=== PATIENT | male | born 1965 | race Caucasian/White ===

== ENCOUNTER 2024-10-24 20:11 | Inpatient (IN) | payer MEDICARE, SELFPAY ==
[2024-10-24 20:52] VITALS: BMI 35.9
[2024-10-24 20:54] VITALS: BP 156/96; PULSE 85; RESP 16; TEMP 36.3; O2SAT 97
[2024-10-24] MEDS: Melatonin 3 MG TABLET PO (22:00)
[2024-10-24] MEDS: Acetaminophen 325 MG TABLET 650 MG PO (22:00)
[2024-10-24] MEDS: traZODone HCL 100 MG TABLET PO (22:00)
[2024-10-24] MEDS: Famotidine 20 MG TABLET PO (22:00)
[2024-10-24] MEDS: Divalproex Sodium Sprinkles 125 MG CAP.DR.SPR 500 MG PO (22:06)
--- NOTE | 2024-10-25 03:06 | PC.ADMIT ---
PT IS A 58 YEAR OLD [place] SPEAKING MALE ADMITTED TO FROM [facility] ON A CONDITIONAL VOLUNTARY. PT WAS BROUGHT TO THE HOSPITAL FOR INCREASED DEPRESSION AND SUICIDAL IDEATION FOR THE PAST 3-4 WEEKS. PT RESIDES AT [facility]. HE DID SIGN A RELEASE FOR STAFF TO SPEAK TO [facility] REGARDING HIS CARE. PT WAS UNSURE OF HIS CURRENT PROVIDERS, REPORTING [facility] WOULD KNOW BETTER WHO I SEE . HE REPORTS THAT HE HAS HAD MANY PSYCHIATRIC ADMISSIONS OVER THE PAST 30 YEARS. PT REPORTS A HISTORY OF BIPOLAR DISORDER. HE APPEARS TO HAVE A TREMOR TO HIS LEFT ARM. PT REPORTS FREQUENT THOUGHTS OF SI WITH NO PLAN, CAN SEEK STAFF. HE REPORTS 10/10 DEPRESSION AND ANXIETY. DIFFICULTY STAYING ASLEEP AT TIMES DESPITE MEDS. SLIGHT DECREASE IN APPETITE. PT REPORTS RIGHT KNEE ARTHRITIS WHICH HE USES A CANE FOR. PT DECLINED A WALKER AT THIS TIME AND IS UTILIZING NO ASSISTIVE DEVICES. HE DENIES ANY FALLS WITHIN THE PAST YEAR. PTS VITAL SIGNS ARE NORMAL. SKIN CHECK UNREMARKABLE. NO KNOWN ALLERGIES. NEVER USED NICOTINE. NO ILLICIT SUBSTANCE USE. PT REPORTS NOT HAVING DRANK ALCOHOL IN APPROXIMATELY 3 YEARS.
[2024-10-25 08:00] VITALS: BP 190/89; PULSE 76; TEMP 36.6; O2SAT 100
[2024-10-25 09:01] VITALS: BP 190/89; PULSE 62
[2024-10-25] MEDS: Propranolol HCL 20 MG TABLET 60 MG PO (09:01)
[2024-10-25] MEDS: Tamsulosin HCL 0.4 MG CAPSULE PO (09:01)
[2024-10-25] MEDS: ARIPiprazole 15 MG TABLET PO (09:03)
[2024-10-25] MEDS: Atorvastatin Calcium 10 MG TABLET PO (09:03)
[2024-10-25] MEDS: lisinopriL 5 MG TABLET PO (09:03)
[2024-10-25] MEDS: Divalproex Sodium Sprinkles 125 MG CAP.DR.SPR 500 MG PO ×2 (09:03→20:30)
[2024-10-25] MEDS: Multivitamin TABLET 1 TAB PO (09:04)
[2024-10-25] MEDS: Famotidine 20 MG TABLET PO ×2 (09:04→20:30)
--- NOTE | 2024-10-25 09:56 | P.HPPS_ITS ---
HPI Date of Service: 10/25/24 Chief Complaint: Bipolar Disorder Sources of Information: patient interviewed, chart reviewed and crisis/core team assessment reviewed HPI Narrative: Patient is a 58-year-old male with history of bipolar disorder who self-presents for worsening depression and SI in the face and verses father's . Patient reports that he has had bipolar disorder for 30 years and has been and now the hospital many times; however he has been more stable lately and hospitalized once every 8 months. For the past 6 months he has been doing overall well, good enough, living at his correction which he says is not bad. As August approached, the anniversary of his father's , as usual he started to get depressed. Over the next month and a half his depression increased became more severe where he had little interest in things, low energy, poor concentration, increased appetite, increased guilty feelings and then over the past 3 weeks suicidal ideation. Patient reports chronic passive SI that is typically fleeting and easy to dismiss; however over the past week it has become more intense and patient developed a plan to overdose on Tylenol. He alerted his correction staff and said he needed to go to the hospital for safety. Patient takes his medications regularly. Denies any drug or alcohol use. Denies any AVH. Past Psychiatric History: Numerous psychiatric admissions over the years Most recent psych admission was 12/24/2023 History of around 20 suicide attempts; history of intentional overdose on Tylenol Patient currently on Abilify and Depakote History of being on lithium: Stopped about a year ago due to side effects Manic episode was 1st triggered in 1992 when patient was started on Wellbutrin Medical Evaluation Reviewed: Hospitalist Aiden Pending [facility] Medical History (Updated 10/25/24 @ 17:54 by Jose Castrejon MD) Bipolar I disorder Family History: Father side: Numerous suicide attempts Social History: Currently lives in correction called [facility] Substance History: None Trauma History: Deferred Diagnostics Vital Signs (24Hr): Vital Signs - 24 hr 10/24/24 20:54 10/25/24 09:01 Temperature 97.4 F Pulse Rate 85 62 Respiratory Rate 16 Blood Pressure 156/96 H 190/89 H Pulse Oximetry 97 Oxygen Delivery Method Room Air BMI result Body Mass Index 35.9 Labs 10/25/24 09:50 Meds/Allergies Meds Home Medications ?Medication ?Instructions ?Recorded ?Confirmed ?Type aripiprazole 15 mg tablet (Abilify) 15 mg PO DAILY 10/24/24 10/24/24 History atorvastatin 10 mg tablet (Lipitor) 10 mg PO DAILY 10/24/24 10/24/24 History diclofenac sodium 1 % topical gel 1 ea topical BID PRN Pain 10/24/24 10/24/24 History (Arthritis Pain (diclofenac)) divalproex 125 mg capsule,delayed 500 mg PO BID 10/24/24 10/24/24 History release sprinkle (Depakote Sprinkles) famotidine 20 mg tablet 20 mg PO BID 10/24/24 10/24/24 History lisinopril 5 mg tablet 5 mg PO DAILY 10/24/24 10/24/24 History magnesium hydroxide 800 mg/5 mL 800 mg PO DAILY PRN Constipation 10/24/24 10/24/24 History oral suspension melatonin 1 mg tablet 4 mg PO BEDTIME 10/24/24 10/24/24 History afylzzee-khg-iplew acid 0.4 1 tab PO DAILY 10/24/24 10/24/24 History mg-lycopene 300 mcg-lutein 250 mcg tablet (CertaVite Senior) ondansetron 4 mg disintegrating 4 mg PO Q8H PRN Nausea And Vomiting 10/24/24 10/24/24 History tablet propranolol 60 mg tablet 60 mg PO DAILY 10/24/24 10/24/24 History sennosides 8.6 mg tablet (senna) 17.2 mg PO BEDTIME PRN Constipation 10/24/24 10/24/24 History tamsulosin 0.4 mg capsule 0.4 mg PO DAILY 10/24/24 10/24/24 History trazodone 100 mg tablet 100 mg PO BEDTIME 10/24/24 10/24/24 History Allergies Allergies Allergy/AdvReac Type Severity Reaction Status Date / Time No Known Allergies Allergy Verified 10/24/24 20:52 Mental Status Exam Mental Status Exam Narrative: Pt is alert and oriented; behavior is cooperative, quiet, calm; patient is not in distress; dressed in hospital attire, scruffy; bilateral hand tremor, some pill rolling; some involuntary mouth movements; mood is described as depressed and affect congruent, downcast; eye contact appropriate; Speech is a little slow and a little soft; psychomotor retardation present; thought process is organized and goal directed; Thought content is on feeling hopeless, treatment; otherwise pertinent to relevant topics and without any delusional content, paranoid ideations or grandiosity; positive SI though no intent or plan; no HI. Denies AVH and there is no evidence of perceptual disturbance. Patients insight and judgment impaired Assessment & Plan Assessment & Plan (1) Bipolar I disorder: Status: Acute Code(s): F31.9 - Bipolar disorder, unspecified Plan Patient is a 58-year-old male with history of bipolar disorder who self-presents for worsening depression and SI in the face and verses father's . Patient reports that he has had bipolar disorder for 30 years and has been and now the hospital many times; however he has been more stable lately and hospitalized once every 8 months. For the past 6 months he has been doing overall well, good enough, living at his correction which he says is not bad. As August approached, the anniversary of his father's , as usual he started to get depressed. Over the next month and a half his depression increased became more severe where he had little interest in things, low energy, poor concentration, increased appetite, increased guilty feelings and then over the past 3 weeks suicidal ideation. Patient reports chronic passive SI that is typically fleeting and easy to dismiss; however over the past week it has become more intense and patient developed a plan to overdose on Tylenol. He alerted his correction staff and said he needed to go to the hospital for safety. Patient takes his medications regularly. Denies any drug or alcohol use. Denies any AVH. Formulation/clinical reasoning: Thirty year history of bipolar disorder. Currently severely depressed. Symptoms seem to be moderately well treated with Abilify and Depakote however patient chronically gets depressed every August. He wants medication management now to help relieve his current depression and prevent future depressive episodes. Discussed options. Patient already seems to have some medication side effects including possible parkinsonian and TD so would like to avoid adding another antipsychotic or increasing Abilify. Considered Wellbutrin however since a triggered his last manic episode, probably not worth the risk. For now will get Depakote level and see if there is room to increase this medication before adding another. Plan: CV Q 15 minutes Depakote level Continue Depakote 500 mg b.i.d. Continue Abilify 15 mg daily Continue other home medications Collateral Patient educated on: diagnosis and medication risk/benefits Informed Consent: understands Reason for continued inpatient stay Substantial Risk for: inability to function and rapid decompensation Statement Statement: I have reviewed the history and physical and performed a pertinent examination on my patient. No changes have occurred unless specified. If the History and Physical was not performed prior to admission, the Hospitalist's service will be consulted for completing the admission physical. Time Spent With Patient Time: Total time managing care of this patient today ____ minutes.
[2024-10-25 10:00] VITALS: BP 111/78; PULSE 79
[2024-10-25 10:22] LABS: MANUAL DIFF FLAG NO
[2024-10-25 10:36] LABS: Basophils Absolute Auto 0.1 X10*3/uL (0.0-0.2); Basophils Percent Auto 0.8 % (0-2); Eosinophils Absolute Auto 0.1 X10*3/uL (0.0-0.4); Eosinophils Percent Auto 1.7 % (0-4); Hematocrit 41.1 % (42.0-52.0); Hemoglobin 13.8 g/dl (14.0-18.0); Imm Gran Abs Auto 0.02 X10*3/uL (0.00-0.03); Imm Gran Pct Auto 0.3 % (0.0-0.4); Lymphocytes Absolute Auto 2.1 X10*3/uL (1.2-4.9); Lymphocytes Percent Auto 32.4 % (20-40); Mean Corpuscular HGB Conc 33.6 g/dl (31.0-36.0); Mean Corpuscular Hemoglobin 30.1 pg (27.0-33.0); Mean Corpuscular Volume 89.7 fL (80.0-98.0); Mean Platelet Volume 10.4 fL (9.4-12.4); Monocytes Absolute Auto 0.5 X10*3/uL (0.1-1.2); Monocytes Percent Auto 7.7 % (2-11); Neutrophils Absolute Auto 3.6 x10*3/uL (2.0-8.3); Neutrophils Percent Auto 57.1 % (45-73); Platelet Count 243 X10*3/uL (160-400); Red Blood Count 4.58 X10*6/uL (4.60-5.80); Red Cell Distribution Width 12.8 % (11.0-16.0); White Blood Count 6.4 X10*3/uL (4.8-10.8)
[2024-10-25 11:05] LABS: Estimated Average Glucose 97 mg/dL; Hemoglobin A1C 124.1005 umol/L
[2024-10-25 11:06] LABS: Cholesterol 189 mg/dL (<200); HDL Cholesterol 38 mg/dL (>40); LDL Cholesterol Calculated 104 mg/dL (<100); Triglycerides 236 mg/dL (<150)
[2024-10-25 11:21] LABS: Free T4 (Free Thyroxine) 1.08 ng/dL (0.71-1.85); Thyroid Stimulating Hormone 1.41 uIU/mL (0.32-4.0)
[2024-10-25 11:33] LABS: Folate 13.9 ng/mL (> or = 4.0); Vitamin B12 601 pg/mL (200-900)
--- NOTE | 2024-10-25 12:06 | HO.PM.IMCN ---
History of Present Illness Data of Consult Service Date: 10/25/24 Primary Care Provider: Unknown Physician HPI Reason for consult: Routine Medical H&P The patient is a 58-year-old male with a past medical history significant for hypertension, peptic ulcer disease, hypercholesterolemia, BPH who is admitted to . Medical consult has been requested for routine medical H&P as the patient is an outside transfer. Patient is seen and examined in his room. He denies any current medical complaints. He reports a baseline tremor which he has noted for the past 1 year or so. States that this has not been evaluated. Review of Systems Review of Systems: Negative except HPI/interval history. PMFSH Cognitive capacity: HTN HLD PUD Pertinent family history: CVA in father Social History Household Members: Other Housing: Assisted Living Facility Housing Other:: Estate Assist Do you presently have visiting nurse or other home services: No Patient Tobacco Use Status: Never used Tobacco Smoked in Last 30 Days: No Patient Interested in Nicotine Replacement: No Patient Given Instructions on How to Stop Smoking: No Second Hand Smoke Exposure: No Use of substances other than those prescribed or required for medical reasons: No Currently Displaying Signs/Symptoms of Drug Intoxication Withdrawal: No Have you been hit, kicked, punched, or otherwise hurt by someone within the past year? If so, by whom?: No Do you feel safe in your current relationship?: No Current Relationship Is there a partner from a previous relationship who is making you feel unsafe now?: No Are you made to feel afraid or neglected: No Advance Directives: No Advance Directives Information Provided: No Do you have thoughts of harming others: None Do you have a plan to hurt others: No Plan Recently lost weight without trying: No Eating poorly because of decreased appetite: No Nutrition Risks: No Nutritional Risk Poor oral hygiene: No Meds Allergies Allergy/AdvReac Type Severity Reaction Status Date / Time No Known Allergies Allergy Verified 10/24/24 20:52 Active Medications: Current Medications Acetaminophen (Acetaminophen 325 Mg Tablet) 650 mg PO Q6H PRN PRN Reason: Headache/Pain, Scale 1-10 Last Admin: 10/24/24 22:00 Dose: 650 mg Al Hydroxide/Mg Hydroxide (Magnesium Hydrox/Alum Hydrox 30 Ml Oral.Susp) 30 ml PO Q6H PRN PRN Reason: Heartburn/Nausea Aripiprazole (Aripiprazole 15 Mg Tablet) 15 mg PO DAILY [facility] Last Admin: 10/25/24 09:03 Dose: 15 mg Atorvastatin Calcium (Atorvastatin Calcium 10 Mg Tablet) 10 mg PO DAILY [facility] Last Admin: 10/25/24 09:03 Dose: 10 mg Divalproex Sodium (Divalproex Sodium Sprinkles 125 Mg ) 500 mg PO BID [facility] Last Admin: 10/25/24 09:03 Dose: 500 mg Famotidine (Famotidine 20 Mg Tablet) 20 mg PO BID [facility] Last Admin: 10/25/24 09:04 Dose: 20 mg Hydroxyzine HCl (Hydroxyzine Hcl 25 Mg Tablet) 25 mg PO Q6H PRN PRN Reason: mild anxiety Lisinopril (Lisinopril 5 Mg Tablet) 5 mg PO DAILY [facility]; Protocol Last Admin: 10/25/24 09:03 Dose: 5 mg Magnesium Hydroxide (Milk Of Magnesia 30 Ml Oral.Susp) 30 ml PO DAILY PRN PRN Reason: Constipation Melatonin (Melatonin 3 Mg Tablet) 3 mg PO BEDTIME [facility] Last Admin: 10/24/24 22:00 Dose: 3 mg Multivitamins/Vitamin C (Multivitamin Tablet) 1 tab PO DAILY [facility] Last Admin: 10/25/24 09:04 Dose: 1 tab Nicotine Polacrilex (Nicotine Polacrilex 2 Mg Gum) 4 mg BUCCAL Q2H PRN PRN Reason: Nicotine Cravings Ondansetron HCl (Ondansetron Odt 4 Mg Tab.Rapdis) 4 mg TRANSLINGU Q8H PRN PRN Reason: Nausea And Vomiting Propranolol HCl (Propranolol Hcl 20 Mg Tablet) 60 mg PO DAILY [facility]; Protocol Last Admin: 10/25/24 09:01 Dose: 60 mg Senna (Sennosides 8.6 Mg Tablet) 17.2 mg PO BEDTIME PRN PRN Reason: Constipation Tamsulosin HCl (Tamsulosin Hcl 0.4 Mg Capsule) 0.4 mg PO DAILY [facility] Last Admin: 10/25/24 09:01 Dose: 0.4 mg Trazodone HCl (Trazodone Hcl 50 Mg Tablet) 50 mg PO BEDTIME MRX1 PRN PRN Reason: Insomnia Trazodone HCl (Trazodone Hcl 100 Mg Tablet) 100 mg PO BEDTIME [facility] Last Admin: 10/24/24 22:00 Dose: 100 mg Home Medications ?Medication ?Instructions ?Recorded ?Confirmed ?Last Taken ?Type aripiprazole 15 mg tablet (Abilify) 15 mg PO DAILY 10/24/24 10/24/24 Unknown History atorvastatin 10 mg tablet (Lipitor) 10 mg PO DAILY 10/24/24 10/24/24 Unknown History diclofenac sodium 1 % topical gel 1 ea topical BID PRN Pain 10/24/24 10/24/24 Unknown History (Arthritis Pain (diclofenac)) divalproex 125 mg capsule,delayed 500 mg PO BID 10/24/24 10/24/24 Unknown History release sprinkle (Depakote Sprinkles) famotidine 20 mg tablet 20 mg PO BID 10/24/24 10/24/24 Unknown History lisinopril 5 mg tablet 5 mg PO DAILY 10/24/24 10/24/24 Unknown History magnesium hydroxide 800 mg/5 mL 800 mg PO DAILY PRN Constipation 10/24/24 10/24/24 Unknown History oral suspension melatonin 1 mg tablet 4 mg PO BEDTIME 10/24/24 10/24/24 Unknown History wbqlopdw-uvw-zydiz acid 0.4 1 tab PO DAILY 10/24/24 10/24/24 Unknown History mg-lycopene 300 mcg-lutein 250 mcg tablet (CertaVite Senior) ondansetron 4 mg disintegrating 4 mg PO Q8H PRN Nausea And Vomiting 10/24/24 10/24/24 Unknown History tablet propranolol 60 mg tablet 60 mg PO DAILY 10/24/24 10/24/24 Unknown History sennosides 8.6 mg tablet (senna) 17.2 mg PO BEDTIME PRN Constipation 10/24/24 10/24/24 Unknown History tamsulosin 0.4 mg capsule 0.4 mg PO DAILY 10/24/24 10/24/24 Unknown History trazodone 100 mg tablet 100 mg PO BEDTIME 10/24/24 10/24/24 Unknown History Physical Exam Vital Signs and Narrative: Vital Signs: Last Vital Signs Temp 97.8 F 10/25/24 08:00 Pulse 62 10/25/24 09:01 Resp 16 10/24/24 20:54 BP 190/89 H 10/25/24 09:01 Pulse Ox 100 10/25/24 08:00 O2 Del Method Room Air 10/25/24 08:00 BMI result Body Mass Index 35.9 Const: Other: General - no acute distress, appears comfortable Cardiovascular - regular rate and rhythm, S1-S2 Lungs - normal respiratory effort, clear to auscultation bilaterally, no wheezing Abdomen - soft, nontender, no rebound or guarding Extremities - no edema bilaterally Neuro - awake and alert, no focal deficits; cn2-12 in tact b/l; has resting tremor b/l UE Results Labs 10/25/24 09:50 Labs: Laboratory Results - last 24 hr 10/25/24 10/25/24 09:50 10:42 MCV 89.7 MCH 30.1 MCHC 33.6 RDW 12.8 Plt Count 243 MPV 10.4 Immature Gran % (Auto) 0.3 Neut % (Auto) 57.1 Lymph % (Auto) 32.4 [place] % (Auto) 7.7 Eos % (Auto) 1.7 Baso % (Auto) 0.8 Lymph # (Auto) 2.1 [place] # (Auto) 0.5 Eos # (Auto) 0.1 Baso # (Auto) 0.1 Abs Immat Gran (auto) 0.02 Absolute Neuts (auto) 3.6 Absolute Nucleated RBC 0.000 Nucleated RBC % (auto) 0.0 Estimat Average Glucose 97 Hemoglobin A1c % 5.0 Triglycerides 236 H Cholesterol 189 LDL Cholesterol, Calc 104 H HDL Cholesterol 38 L Vitamin B12 601 Folate 13.9 TSH 1.41 Free T4 1.08 Assessment and Plan (1) Routine medical exam: Status: Acute Plan 58 yo M with HLD, HTN, PUD who is admitted to . Medical consult requested for routine medical H&P. 1. HTN AM Bp elevated -- improved after AM meds to 111/78 denies symptoms of elevated HTN 2. HLD statin 3. PUD on H2 blockers -- continue the same 4. Resting tremor pt endorses on going for 1+ year can have outpt f/u with neurology Medicallly stable will sign off at this time, please re-consult PRN.
[2024-10-25 20:00] VITALS: BP 121/77; PULSE 91; TEMP 36.3; O2SAT 97
[2024-10-25] MEDS: Acetaminophen 325 MG TABLET 650 MG PO (20:30)
[2024-10-25] MEDS: Melatonin 3 MG TABLET PO (20:30)
[2024-10-25] MEDS: traZODone HCL 100 MG TABLET PO (20:30)
[2024-10-26 08:00] VITALS: BP 138/87; PULSE 77; RESP 16; TEMP 36.2; O2SAT 99
[2024-10-26 08:18] LABS: Valproate 43.1 mcg/mL (50.0-100.0)
[2024-10-26 10:04] VITALS: BP 138/87; PULSE 77
[2024-10-26] MEDS: Propranolol HCL 20 MG TABLET 60 MG PO (10:04)
[2024-10-26] MEDS: Divalproex Sodium Sprinkles 125 MG CAP.DR.SPR 500 MG PO (10:05)
[2024-10-26] MEDS: lisinopriL 5 MG TABLET PO (10:06)
[2024-10-26] MEDS: Tamsulosin HCL 0.4 MG CAPSULE PO (10:06)
[2024-10-26] MEDS: Famotidine 20 MG TABLET PO ×2 (10:06→21:21)
[2024-10-26] MEDS: Atorvastatin Calcium 10 MG TABLET PO (10:06)
[2024-10-26] MEDS: ARIPiprazole 15 MG TABLET PO (10:06)
[2024-10-26] MEDS: Multivitamin TABLET 1 TAB PO (10:06)
[2024-10-26] MEDS: Acetaminophen 325 MG TABLET 650 MG PO ×2 (10:21→21:23)
--- NOTE | 2024-10-26 10:58 | P.PNPSI_ITS ---
Subjective Subjective Date of Service: 10/26/24 Reason For Visit: Bipolar Disorder Interim History: met w/ pt; discussed with team little better but thinks it because he's here on the unit and unable to hurt himself, which is relieving. He still has SI but it's less intense and he can dismiss it, though not back to baseline. Reviewed depakote level which is subtherapeutic and pt agrees to increase dose, switch to Long acting and make it once a day. He's hoping not to add a new med if possible. discussed TD; he is interested in [facility] Mental Status Exam Mental Status Exam Narrative: Pt is alert and oriented; behavior is cooperative, quiet, calm; patient is not in distress; dressed in hospital attire, scruffy; bilateral hand tremor, some pill rolling; some involuntary mouth movements; mood is described as depressed...little better though affect still downcast; eye contact appropriate; Speech is a little slow and a little soft; psychomotor retardation present; thought process is organized and goal directed; Thought content is on feeling hopeless, treatment; otherwise pertinent to relevant topics and without any delusional content, paranoid ideations or grandiosity; positive SI though no intent or plan; no HI. Denies AVH and there is no evidence of perceptual disturbance. Patients insight and judgment impaired Diagnostics Vital Signs (24Hr): Vital Signs - 24 hr 10/25/24 20:00 10/26/24 08:00 10/26/24 10:04 Temperature 97.3 F 97.1 F Pulse Rate 91 77 77 Respiratory Rate 16 Blood Pressure 121/77 138/87 138/87 Pulse Oximetry 97 99 Oxygen Delivery Method Room Air Room Air BMI result Body Mass Index 35.9 Labs 10/25/24 09:50 Labs: Laboratory Results - last 48 hr 10/25/24 10/25/24 10/26/24 09:50 10:42 07:41 WBC 6.4 RBC 4.58 L Hgb 13.8 L Hct 41.1 L MCV 89.7 MCH 30.1 MCHC 33.6 RDW 12.8 Plt Count 243 MPV 10.4 Immature Gran % (Auto) 0.3 Neut % (Auto) 57.1 Lymph % (Auto) 32.4 [place] % (Auto) 7.7 Eos % (Auto) 1.7 Baso % (Auto) 0.8 Lymph # (Auto) 2.1 [place] # (Auto) 0.5 Eos # (Auto) 0.1 Baso # (Auto) 0.1 Abs Immat Gran (auto) 0.02 Absolute Neuts (auto) 3.6 Absolute Nucleated RBC 0.000 Nucleated RBC % (auto) 0.0 Estimat Average Glucose 97 Hemoglobin A1c % 5.0 Triglycerides 236 H Cholesterol 189 LDL Cholesterol, Calc 104 H HDL Cholesterol 38 L Vitamin B12 601 Folate 13.9 TSH 1.41 Free T4 1.08 Valproic Acid 43.1 L Medications Medications Current Medications Acetaminophen (Acetaminophen 325 Mg Tablet) 650 mg PO Q6H PRN PRN Reason: Headache/Pain, Scale 1-10 Last Admin: 10/26/24 10:21 Dose: 650 mg Al Hydroxide/Mg Hydroxide (Magnesium Hydrox/Alum Hydrox 30 Ml Oral.Susp) 30 ml PO Q6H PRN PRN Reason: Heartburn/Nausea Aripiprazole (Aripiprazole 15 Mg Tablet) 15 mg PO DAILY [facility] Last Admin: 10/26/24 10:06 Dose: 15 mg Atorvastatin Calcium (Atorvastatin Calcium 10 Mg Tablet) 10 mg PO DAILY [facility] Last Admin: 10/26/24 10:06 Dose: 10 mg Divalproex Sodium (Divalproex Sodium Sprinkles 125 Mg ) 500 mg PO BID [facility] Last Admin: 10/26/24 10:05 Dose: 500 mg Famotidine (Famotidine 20 Mg Tablet) 20 mg PO BID [facility] Last Admin: 10/26/24 10:06 Dose: 20 mg Hydroxyzine HCl (Hydroxyzine Hcl 25 Mg Tablet) 25 mg PO Q6H PRN PRN Reason: mild anxiety Lisinopril (Lisinopril 5 Mg Tablet) 5 mg PO DAILY [facility]; Protocol Last Admin: 10/26/24 10:06 Dose: 5 mg Magnesium Hydroxide (Milk Of Magnesia 30 Ml Oral.Susp) 30 ml PO DAILY PRN PRN Reason: Constipation Melatonin (Melatonin 3 Mg Tablet) 3 mg PO BEDTIME [facility] Last Admin: 10/25/24 20:30 Dose: 3 mg Multivitamins/Vitamin C (Multivitamin Tablet) 1 tab PO DAILY [facility] Last Admin: 10/26/24 10:06 Dose: 1 tab Nicotine Polacrilex (Nicotine Polacrilex 2 Mg Gum) 4 mg BUCCAL Q2H PRN PRN Reason: Nicotine Cravings Ondansetron HCl (Ondansetron Odt 4 Mg Tab.Rapdis) 4 mg TRANSLINGU Q8H PRN PRN Reason: Nausea And Vomiting Propranolol HCl (Propranolol Hcl 20 Mg Tablet) 60 mg PO DAILY [facility]; Protocol Last Admin: 10/26/24 10:04 Dose: 60 mg Senna (Sennosides 8.6 Mg Tablet) 17.2 mg PO BEDTIME PRN PRN Reason: Constipation Tamsulosin HCl (Tamsulosin Hcl 0.4 Mg Capsule) 0.4 mg PO DAILY [facility] Last Admin: 10/26/24 10:06 Dose: 0.4 mg Trazodone HCl (Trazodone Hcl 50 Mg Tablet) 50 mg PO BEDTIME MRX1 PRN PRN Reason: Insomnia Trazodone HCl (Trazodone Hcl 100 Mg Tablet) 100 mg PO BEDTIME [facility] Last Admin: 10/25/24 20:30 Dose: 100 mg Allergies Allergies Allergy/AdvReac Type Severity Reaction Status Date / Time No Known Allergies Allergy Verified 10/24/24 20:52 Assessment & Plan Assessment & Plan (1) Bipolar I disorder: Status: Acute Code(s): F31.9 - Bipolar disorder, unspecified Plan Patient is a 58-year-old male with history of bipolar disorder who self-presents for worsening depression and SI in the face and verses father's . Patient reports that he has had bipolar disorder for 30 years and has been and now the hospital many times; however he has been more stable lately and hospitalized once every 8 months. For the past 6 months he has been doing overall well, good enough, living at his fpc which he says is not bad. As August approached, the anniversary of his father's , as usual he started to get depressed. Over the next month and a half his depression increased became more severe where he had little interest in things, low energy, poor concentration, increased appetite, increased guilty feelings and then over the past 3 weeks suicidal ideation. Patient reports chronic passive SI that is typically fleeting and easy to dismiss; however over the past week it has become more intense and patient developed a plan to overdose on Tylenol. He alerted his [facility] staff and said he needed to go to the hospital for safety. Patient takes his medications regularly. Denies any drug or alcohol use. Denies any AVH. Formulation/clinical reasoning: Thirty year history of bipolar disorder. Currently severely depressed. Symptoms seem to be moderately well treated with Abilify and Depakote however patient chronically gets depressed every August. He wants medication management now to help relieve his current depression and prevent future depressive episodes. Discussed options. Patient already seems to have some medication side effects including possible parkinsonian and TD so would like to avoid adding another antipsychotic or increasing Abilify. Considered Wellbutrin however since a triggered his last manic episode, probably not worth the risk. For now will get Depakote level and see if there is room to increase this medication before adding another. Hospital course: 10/26 little better but thinks it because he's here on the unit and unable to hurt himself, which is relieving; also feels therapeutic environment helpful. He still has SI but it's less intense and he can dismiss it, though not back to baseline. Reviewed depakote level which is subtherapeutic and pt agrees to increase dose, switch to Long acting and make it once a day. He's hoping not to add a new med if possible. discussed TD; he is interested in [facility] Plan: CV Q 15 minutes Depakote level subtherapeutic START Depakote ER 1500mg qhs (DC Depakote sprinkles 500 mg b.i.d. ) Continue Abilify 15 mg daily Continue other home medications Collateral Patient educated on: diagnosis, medication risk/benefits and therapeutic strategies Informed Consent: understands Reason for continued inpatient stay Substantial Risk for: rapid decompensation Time Spent With Patient Time: Total time managing care of this patient today ____ minutes.
[2024-10-26 19:45] VITALS: BP 137/81; PULSE 75; RESP 16; TEMP 36.4; O2SAT 98
[2024-10-26] MEDS: traZODone HCL 100 MG TABLET PO (21:21)
[2024-10-26] MEDS: Divalproex Sodium ER 500 MG TAB.ER.24H 1500 MG PO (21:21)
[2024-10-26] MEDS: Melatonin 3 MG TABLET PO (21:21)
[2024-10-27 08:00] VITALS: BP 154/91; PULSE 64; TEMP 36.4; O2SAT 99
[2024-10-27] MEDS: Atorvastatin Calcium 10 MG TABLET PO (09:13)
[2024-10-27] MEDS: Multivitamin TABLET 1 TAB PO (09:13)
[2024-10-27] MEDS: Propranolol HCL 20 MG TABLET 60 MG PO (09:13)
[2024-10-27] MEDS: Tamsulosin HCL 0.4 MG CAPSULE PO (09:13)
[2024-10-27] MEDS: Famotidine 20 MG TABLET PO ×2 (09:13→20:55)
[2024-10-27] MEDS: ARIPiprazole 15 MG TABLET PO (09:13)
[2024-10-27] MEDS: lisinopriL 5 MG TABLET PO (09:13)
--- NOTE | 2024-10-27 12:53 | HO.PSYCHPN ---
Subjective Subjective Date of Service: 10/27/24 Reason For Visit: Bipolar Disorder Interim History: met with patient; discussed with team pt says feeling better, but still thinks mostly due to feeling safe on the unit. Says not back to baseline but at a 5/10 (10 being regular self). 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 manic; will wait until increased dose of Depakote reaches steady state to decide Mental Status Exam Mental Status Exam Narrative: Pt is alert and oriented; behavior is cooperative, quiet, calm; patient is not in distress; dressed in hospital attire, scruffy; bilateral hand tremor, some pill rolling; some involuntary mouth movements; mood is described as little better though affect still downcast; eye contact appropriate; Speech is a little slow and a little soft; less psychomotor retardation present; thought process is organized and goal directed; Thought content is on feeling overcoming hopeless thoughts, treatment; otherwise pertinent to relevant topics and without any delusional content, paranoid ideations or grandiosity; intermittent positive SI, though no intent or plan; no HI. Denies AVH and there is no evidence of perceptual disturbance. Patients insight and judgment impaired but improving. Diagnostics Vital Signs (24Hr): Vital Signs - 24 hr 10/26/24 19:45 10/27/24 08:00 Temperature 97.5 F 97.5 F Pulse Rate 75 64 Respiratory Rate 16 Blood Pressure 137/81 154/91 H Pulse Oximetry 98 99 Oxygen Delivery Method Room Air Room Air BMI result Body Mass Index 35.9 Labs 10/25/24 09:50 Labs: Laboratory Results - last 48 hr 10/26/24 07:41 Valproic Acid 43.1 L Medications Medications Current Medications Acetaminophen (Acetaminophen 325 Mg Tablet) 650 mg PO Q6H PRN PRN Reason: Headache/Pain, Scale 1-10 Last Admin: 10/26/24 21:23 Dose: 650 mg Al Hydroxide/Mg Hydroxide (Magnesium Hydrox/Alum Hydrox 30 Ml Oral.Susp) 30 ml PO Q6H PRN PRN Reason: Heartburn/Nausea Aripiprazole (Aripiprazole 15 Mg Tablet) 15 mg PO DAILY [facility] Last Admin: 10/27/24 09:13 Dose: 15 mg Atorvastatin Calcium (Atorvastatin Calcium 10 Mg Tablet) 10 mg PO DAILY [facility] Last Admin: 10/27/24 09:13 Dose: 10 mg Divalproex Sodium (Divalproex Sodium Er 500 Mg Tab.Er.24h) 1,500 mg PO BEDTIME [facility] Last Admin: 10/26/24 21:21 Dose: 1,500 mg Famotidine (Famotidine 20 Mg Tablet) 20 mg PO BID [facility] Last Admin: 10/27/24 09:13 Dose: 20 mg Hydroxyzine HCl (Hydroxyzine Hcl 25 Mg Tablet) 25 mg PO Q6H PRN PRN Reason: mild anxiety Lisinopril (Lisinopril 5 Mg Tablet) 5 mg PO DAILY [facility]; Protocol Last Admin: 10/27/24 09:13 Dose: 5 mg Magnesium Hydroxide (Milk Of Magnesia 30 Ml Oral.Susp) 30 ml PO DAILY PRN PRN Reason: Constipation Melatonin (Melatonin 3 Mg Tablet) 3 mg PO BEDTIME [facility] Last Admin: 10/26/24 21:21 Dose: 3 mg Multivitamins/Vitamin C (Multivitamin Tablet) 1 tab PO DAILY [facility] Last Admin: 10/27/24 09:13 Dose: 1 tab Nicotine Polacrilex (Nicotine Polacrilex 2 Mg Gum) 4 mg BUCCAL Q2H PRN PRN Reason: Nicotine Cravings Ondansetron HCl (Ondansetron Odt 4 Mg Tab.Rapdis) 4 mg TRANSLINGU Q8H PRN PRN Reason: Nausea And Vomiting Propranolol HCl (Propranolol Hcl 20 Mg Tablet) 60 mg PO DAILY [facility]; Protocol Last Admin: 10/27/24 09:13 Dose: 60 mg Senna (Sennosides 8.6 Mg Tablet) 17.2 mg PO BEDTIME PRN PRN Reason: Constipation Tamsulosin HCl (Tamsulosin Hcl 0.4 Mg Capsule) 0.4 mg PO DAILY [facility] Last Admin: 10/27/24 09:13 Dose: 0.4 mg Trazodone HCl (Trazodone Hcl 50 Mg Tablet) 50 mg PO BEDTIME MRX1 PRN PRN Reason: Insomnia Trazodone HCl (Trazodone Hcl 100 Mg Tablet) 100 mg PO BEDTIME [facility] Last Admin: 10/26/24 21:21 Dose: 100 mg Allergies Allergies Allergy/AdvReac Type Severity Reaction Status Date / Time No Known Allergies Allergy Verified 10/24/24 20:52 Assessment & Plan Assessment & Plan (1) Bipolar I disorder: Status: Acute Code(s): F31.9 - Bipolar disorder, unspecified Plan Patient is a 58-year-old male with history of bipolar disorder who self-presents for worsening depression and SI in the face and verses father's . Patient reports that he has had bipolar disorder for 30 years and has been and now the hospital many times; however he has been more stable lately and hospitalized once every 8 months. For the past 6 months he has been doing overall well, good enough, living at his snf which he says is not bad. As August approached, the anniversary of his father's , as usual he started to get depressed. Over the next month and a half his depression increased became more severe where he had little interest in things, low energy, poor concentration, increased appetite, increased guilty feelings and then over the past 3 weeks suicidal ideation. Patient reports chronic passive SI that is typically fleeting and easy to dismiss; however over the past week it has become more intense and patient developed a plan to overdose on Tylenol. He alerted his snf staff and said he needed to go to the hospital for safety. Patient takes his medications regularly. Denies any drug or alcohol use. Denies any AVH. Formulation/clinical reasoning: Thirty year history of bipolar disorder. Currently severely depressed. Symptoms seem to be moderately well treated with Abilify and Depakote however patient chronically gets depressed every August. He wants medication management now to help relieve his current depression and prevent future depressive episodes. Discussed options. Patient already seems to have some medication side effects including possible parkinsonian and TD so would like to avoid adding another antipsychotic or increasing Abilify. Considered Wellbutrin however since a triggered his last manic episode, probably not worth the risk. For now will get Depakote level and see if there is room to increase this medication before adding another. Hospital course: 10/26 little better but thinks it because he's here on the unit and unable to hurt himself, which is relieving; also feels therapeutic environment helpful. He still has SI but it's less intense and he can dismiss it, though not back to baseline. Reviewed depakote level which is subtherapeutic and pt agrees to increase dose, switch to Long acting and make it once a day. He's hoping not to add a new med if possible. 10/27 pt says feeling better, but still thinks mostly due to feeling safe on the unit. Says not back to baseline but at a 5/10 (10 being regular self). 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 ); Depakote level was subtherapeutic Continue Abilify 15 mg daily Continue other home medications Collateral Patient educated on: diagnosis, medication risk/benefits and therapeutic strategies Informed Consent: understands Reason for continued inpatient stay Substantial Risk for: inability to function Time Spent With Patient Time: Total time managing care of this patient today ____ minutes.
[2024-10-27] MEDS: Acetaminophen 325 MG TABLET 650 MG PO (16:01)
[2024-10-27 19:39] VITALS: BP 143/89; PULSE 78; RESP 16; TEMP 36.4; O2SAT 98
[2024-10-27] MEDS: traZODone HCL 100 MG TABLET PO (20:55)
[2024-10-27] MEDS: Melatonin 3 MG TABLET PO (20:55)
[2024-10-27] MEDS: Divalproex Sodium ER 500 MG TAB.ER.24H 1500 MG PO (20:55)
[2024-10-28] MEDS: Acetaminophen 325 MG TABLET 650 MG PO ×2 (02:18→19:16)
[2024-10-28 08:00] VITALS: BP 134/76; PULSE 83; RESP 16; TEMP 36.4; O2SAT 98
[2024-10-28] MEDS: Propranolol HCL 20 MG TABLET 60 MG PO (08:18)
[2024-10-28] MEDS: Tamsulosin HCL 0.4 MG CAPSULE PO (08:18)
[2024-10-28] MEDS: lisinopriL 5 MG TABLET PO (08:18)
[2024-10-28] MEDS: Famotidine 20 MG TABLET PO ×2 (08:19→21:06)
[2024-10-28] MEDS: ARIPiprazole 15 MG TABLET PO (08:19)
[2024-10-28] MEDS: Atorvastatin Calcium 10 MG TABLET PO (08:19)
[2024-10-28] MEDS: Multivitamin TABLET 1 TAB PO (08:19)
--- NOTE | 2024-10-28 09:59 | HO.PSYCHPN ---
Subjective Subjective Date of Service: 10/28/24 Reason For Visit: Bipolar Disorder Interim History: Met with patient; discussed with team Patient reports depression seems to be returning and he thinks the brief reprieve was just being in a new environment. Also patient had very poor sleep last night, waking up at 02:00 and has been up since. Discussed options and agreed to wait to see what Depakote level as which is being drawn tomorrow. Mental Status Exam Mental Status Exam Narrative: Pt is alert and oriented; behavior is cooperative, quiet, isolative calm; patient is not in distress; dressed in hospital attire, scruffy; bilateral hand tremor, some pill rolling; some involuntary mouth movements; mood is described as more depressed and affect still downcast; eye contact appropriate; Speech is a little slow and a little soft; still with psychomotor retardation present; thought process is organized and goal directed; Thought content is on feeling overcoming hopeless thoughts, treatment; otherwise pertinent to relevant topics and without any delusional content, paranoid ideations or grandiosity; intermittent positive SI, though no intent or plan; no HI. Denies AVH and there is no evidence of perceptual disturbance. Patients insight and judgment impaired Diagnostics Vital Signs (24Hr): Vital Signs - 24 hr 10/27/24 19:39 10/28/24 08:00 Temperature 97.5 F 97.5 F Pulse Rate 78 83 Respiratory Rate 16 16 Blood Pressure 143/89 H 134/76 Pulse Oximetry 98 98 Oxygen Delivery Method Room Air Room Air BMI result Body Mass Index 35.9 Labs 10/25/24 09:50 Medications Medications Current Medications Acetaminophen (Acetaminophen 325 Mg Tablet) 650 mg PO Q6H PRN PRN Reason: Headache/Pain, Scale 1-10 Last Admin: 10/28/24 02:18 Dose: 650 mg Al Hydroxide/Mg Hydroxide (Magnesium Hydrox/Alum Hydrox 30 Ml Oral.Susp) 30 ml PO Q6H PRN PRN Reason: Heartburn/Nausea Aripiprazole (Aripiprazole 15 Mg Tablet) 15 mg PO DAILY [facility] Last Admin: 10/28/24 08:19 Dose: 15 mg Atorvastatin Calcium (Atorvastatin Calcium 10 Mg Tablet) 10 mg PO DAILY [facility] Last Admin: 10/28/24 08:19 Dose: 10 mg Divalproex Sodium (Divalproex Sodium Er 500 Mg Tab.Er.24h) 1,500 mg PO BEDTIME [facility] Last Admin: 10/27/24 20:55 Dose: 1,500 mg Famotidine (Famotidine 20 Mg Tablet) 20 mg PO BID [facility] Last Admin: 10/28/24 08:19 Dose: 20 mg Hydroxyzine HCl (Hydroxyzine Hcl 25 Mg Tablet) 25 mg PO Q6H PRN PRN Reason: mild anxiety Lisinopril (Lisinopril 5 Mg Tablet) 5 mg PO DAILY [facility]; Protocol Last Admin: 10/28/24 08:18 Dose: 5 mg Magnesium Hydroxide (Milk Of Magnesia 30 Ml Oral.Susp) 30 ml PO DAILY PRN PRN Reason: Constipation Melatonin (Melatonin 3 Mg Tablet) 3 mg PO BEDTIME [facility] Last Admin: 10/27/24 20:55 Dose: 3 mg Multivitamins/Vitamin C (Multivitamin Tablet) 1 tab PO DAILY [facility] Last Admin: 10/28/24 08:19 Dose: 1 tab Nicotine Polacrilex (Nicotine Polacrilex 2 Mg Gum) 4 mg BUCCAL Q2H PRN PRN Reason: Nicotine Cravings Ondansetron HCl (Ondansetron Odt 4 Mg Tab.Rapdis) 4 mg TRANSLINGU Q8H PRN PRN Reason: Nausea And Vomiting Propranolol HCl (Propranolol Hcl 20 Mg Tablet) 60 mg PO DAILY [facility]; Protocol Last Admin: 10/28/24 08:18 Dose: 60 mg Senna (Sennosides 8.6 Mg Tablet) 17.2 mg PO BEDTIME PRN PRN Reason: Constipation Tamsulosin HCl (Tamsulosin Hcl 0.4 Mg Capsule) 0.4 mg PO DAILY [facility] Last Admin: 10/28/24 08:18 Dose: 0.4 mg Trazodone HCl (Trazodone Hcl 50 Mg Tablet) 50 mg PO BEDTIME MRX1 PRN PRN Reason: Insomnia Trazodone HCl (Trazodone Hcl 100 Mg Tablet) 100 mg PO BEDTIME [facility] Last Admin: 10/27/24 20:55 Dose: 100 mg Allergies Allergies Allergy/AdvReac Type Severity Reaction Status Date / Time No Known Allergies Allergy Verified 10/24/24 20:52 Assessment & Plan Assessment & Plan (1) Bipolar I disorder: Status: Acute Code(s): F31.9 - Bipolar disorder, unspecified Plan Patient is a 58-year-old male with history of bipolar disorder who self-presents for worsening depression and SI in the face and verses father's . Patient reports that he has had bipolar disorder for 30 years and has been and now the hospital many times; however he has been more stable lately and hospitalized once every 8 months. For the past 6 months he has been doing overall well, good enough, living at his [facility] which he says is not bad. As August approached, the anniversary of his father's , as usual he started to get depressed. Over the next month and a half his depression increased became more severe where he had little interest in things, low energy, poor concentration, increased appetite, increased guilty feelings and then over the past 3 weeks suicidal ideation. Patient reports chronic passive SI that is typically fleeting and easy to dismiss; however over the past week it has become more intense and patient developed a plan to overdose on Tylenol. He alerted his [facility] staff and said he needed to go to the hospital for safety. Patient takes his medications regularly. Denies any drug or alcohol use. Denies any AVH. Formulation/clinical reasoning: Thirty year history of bipolar disorder. Currently severely depressed. Symptoms seem to be moderately well treated with Abilify and Depakote however patient chronically gets depressed every August. He wants medication management now to help relieve his current depression and prevent future depressive episodes. Discussed options. Patient already seems to have some medication side effects including possible parkinsonian and TD so would like to avoid adding another antipsychotic or increasing Abilify. Considered Wellbutrin however since a triggered his last manic episode, probably not worth the risk. For now will get Depakote level and see if there is room to increase this medication before adding another. Hospital course: 10/26 little better but thinks it because he's here on the unit and unable to hurt himself, which is relieving; also feels therapeutic environment helpful. He still has SI but it's less intense and he can dismiss it, though not back to baseline. Reviewed depakote level which is subtherapeutic and pt agrees to increase dose, switch to Long acting and make it once a day. He's hoping not to add a new med if possible. 10/27 pt says feeling better, but still thinks mostly due to feeling safe on the unit. Says not back to baseline but at a 5/10 (10 being regular self). 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 Also patient had very poor sleep last night, waking up at 02:00 and has been up since. Discussed options and agreed to wait to see what Depakote level as which is being drawn tomorrow. Discussed behavioral activation; patient did go to group yesterday. Says he will continue to push himself to be interactive discussed TD; he is interested in in[facility] Plan: CV Q 15 minutes Continue Depakote ER 1500mg qhs (DC Depakote sprinkles 500 mg b.i.d. ); previous Depakote level was subtherapeutic -labs ordered Continue Abilify 15 mg daily Continue other home medications Collateral Patient educated on: diagnosis, medication risk/benefits and therapeutic strategies Informed Consent: understands Reason for continued inpatient stay Substantial Risk for: inability to function Time Spent With Patient Time: Total time managing care of this patient today ____ minutes.
[2024-10-28 19:50] VITALS: BP 162/97; PULSE 88; RESP 15; TEMP 36.4; O2SAT 98
[2024-10-28] MEDS: cloNIDine HCL 0.1 MG TABLET PO (21:06)
[2024-10-28] MEDS: Divalproex Sodium ER 500 MG TAB.ER.24H 1500 MG PO (21:06)
[2024-10-28] MEDS: Melatonin 3 MG TABLET PO (21:06)
[2024-10-28] MEDS: traZODone HCL 100 MG TABLET PO (21:06)
[2024-10-29 08:00] VITALS: BP 166/95; PULSE 59; TEMP 35.9; O2SAT 99
[2024-10-29] MEDS: Atorvastatin Calcium 10 MG TABLET PO (08:53)
[2024-10-29] MEDS: Tamsulosin HCL 0.4 MG CAPSULE PO (08:53)
[2024-10-29] MEDS: lisinopriL 5 MG TABLET PO (08:53)
[2024-10-29] MEDS: Multivitamin TABLET 1 TAB PO (08:54)
[2024-10-29] MEDS: Propranolol HCL 20 MG TABLET 60 MG PO (08:54)
[2024-10-29] MEDS: Famotidine 20 MG TABLET PO ×2 (08:54→20:55)
[2024-10-29] MEDS: ARIPiprazole 15 MG TABLET PO (08:54)
[2024-10-29 09:21] LABS: Valproate 55.1 mcg/mL (50.0-100.0)
[2024-10-29 09:27] LABS: Alanine Aminotransferase 24 U/L (0-40); Alkaline Phosphatase 81 U/L (39-117); Ammonia 38 umol/L (13-55); Bilirubin Direct 0.1 mg/dL (0.0-0.5); Bilirubin Total 0.3 mg/dL (0.0-1.0); Total Protein 7.6 g/dL (6.5-8.0)
[2024-10-29 09:47] LABS: Aspartate Amino Transferase 19 U/L (5-37)
--- NOTE | 2024-10-29 12:02 | HO.PSYCHPN ---
Subjective Subjective Date of Service: 10/29/24 Reason For Visit: Bipolar Disorder Interim History: Met with patient; discussed with team Patient says his mood is starting to feel little better today and of note his affect is somewhat brighter. Discussed medication regimen and history. Patient said that he was started on Abilify about a year ago for help with depression; he says his bilateral hand tremor and TD both started after he was initiated on Abilify and was never present prior. Discussed options for medication and as Depakote level is quite low, he agrees to increasing Depakote dose now; will also lower Abilify Mental Status Exam Mental Status Exam Narrative: Pt is alert and oriented; behavior is cooperative, more social, calm; patient is not in distress; dressed in casual attire, scruffy; bilateral hand tremor, some pill rolling; some involuntary mouth movements; mood is described as little better and affect a little brighter; eye contact appropriate; Speech is still a little soft and slow; still with psychomotor retardation but less so; thought process is organized and goal directed; Thought content is on treatment; otherwise pertinent to relevant topics and without any delusional content, paranoid ideations or grandiosity; intermittent positive SI, though no intent or plan; no HI. Denies AVH and there is no evidence of perceptual disturbance. Patients insight and judgment impaired but maybe improving Diagnostics Vital Signs (24Hr): Vital Signs - 24 hr 10/28/24 19:50 10/29/24 08:00 Temperature 97.5 F 96.6 F L Pulse Rate 88 59 Respiratory Rate 15 Blood Pressure 162/97 H 166/95 H Pulse Oximetry 98 99 Oxygen Delivery Method Room Air BMI result Body Mass Index 35.9 Labs 10/25/24 09:50 Labs: Laboratory Results - last 48 hr 10/29/24 08:53 Total Bilirubin 0.3 Direct Bilirubin 0.1 AST 19 ALT 24 Alkaline Phosphatase 81 Ammonia 38 Total Protein 7.6 Albumin 4.0 Valproic Acid 55.1 Medications Medications Current Medications Acetaminophen (Acetaminophen 325 Mg Tablet) 650 mg PO Q6H PRN PRN Reason: Headache/Pain, Scale 1-10 Last Admin: 10/28/24 19:16 Dose: 650 mg Al Hydroxide/Mg Hydroxide (Magnesium Hydrox/Alum Hydrox 30 Ml Oral.Susp) 30 ml PO Q6H PRN PRN Reason: Heartburn/Nausea Aripiprazole (Aripiprazole 15 Mg Tablet) 15 mg PO DAILY [facility] Last Admin: 10/29/24 08:54 Dose: 15 mg Atorvastatin Calcium (Atorvastatin Calcium 10 Mg Tablet) 10 mg PO DAILY [facility] Last Admin: 10/29/24 08:53 Dose: 10 mg Clonidine HCl (Clonidine Hcl 0.1 Mg Tablet) 0.1 mg PO BEDTIME [facility]; Protocol Last Admin: 10/28/24 21:06 Dose: 0.1 mg Divalproex Sodium (Divalproex Sodium Er 500 Mg Tab.Er.24h) 1,500 mg PO BEDTIME [facility] Last Admin: 10/28/24 21:06 Dose: 1,500 mg Famotidine (Famotidine 20 Mg Tablet) 20 mg PO BID [facility] Last Admin: 10/29/24 08:54 Dose: 20 mg Hydroxyzine HCl (Hydroxyzine Hcl 25 Mg Tablet) 25 mg PO Q6H PRN PRN Reason: mild anxiety Lisinopril (Lisinopril 5 Mg Tablet) 5 mg PO DAILY [facility]; Protocol Last Admin: 10/29/24 08:53 Dose: 5 mg Magnesium Hydroxide (Milk Of Magnesia 30 Ml Oral.Susp) 30 ml PO DAILY PRN PRN Reason: Constipation Melatonin (Melatonin 3 Mg Tablet) 3 mg PO BEDTIME [facility] Last Admin: 10/28/24 21:06 Dose: 3 mg Multivitamins/Vitamin C (Multivitamin Tablet) 1 tab PO DAILY [facility] Last Admin: 10/29/24 08:54 Dose: 1 tab Nicotine Polacrilex (Nicotine Polacrilex 2 Mg Gum) 4 mg BUCCAL Q2H PRN PRN Reason: Nicotine Cravings Ondansetron HCl (Ondansetron Odt 4 Mg Tab.Rapdis) 4 mg TRANSLINGU Q8H PRN PRN Reason: Nausea And Vomiting Propranolol HCl (Propranolol Hcl 20 Mg Tablet) 60 mg PO DAILY [facility]; Protocol Last Admin: 10/29/24 08:54 Dose: 60 mg Senna (Sennosides 8.6 Mg Tablet) 17.2 mg PO BEDTIME PRN PRN Reason: Constipation Tamsulosin HCl (Tamsulosin Hcl 0.4 Mg Capsule) 0.4 mg PO DAILY [facility] Last Admin: 10/29/24 08:53 Dose: 0.4 mg Trazodone HCl (Trazodone Hcl 50 Mg Tablet) 50 mg PO BEDTIME [facility]X1 PRN PRN Reason: Insomnia Trazodone HCl (Trazodone Hcl 100 Mg Tablet) 100 mg PO BEDTIME [facility] Last Admin: 10/28/24 21:06 Dose: 100 mg Allergies Allergies Allergy/AdvReac Type Severity Reaction Status Date / Time No Known Allergies Allergy Verified 10/24/24 20:52 Assessment & Plan Assessment & Plan (1) Bipolar I disorder: Status: Acute Code(s): F31.9 - Bipolar disorder, unspecified Plan Patient is a 58-year-old male with history of bipolar disorder who self-presents for worsening depression and SI in the face and verses father's . Patient reports that he has had bipolar disorder for 30 years and has been and now the hospital many times; however he has been more stable lately and hospitalized once every 8 months. For the past 6 months he has been doing overall well, good enough, living at his intermediate which he says is not bad. As August approached, the anniversary of his father's , as usual he started to get depressed. Over the next month and a half his depression increased became more severe where he had little interest in things, low energy, poor concentration, increased appetite, increased guilty feelings and then over the past 3 weeks suicidal ideation. Patient reports chronic passive SI that is typically fleeting and easy to dismiss; however over the past week it has become more intense and patient developed a plan to overdose on Tylenol. He alerted his intermediate staff and said he needed to go to the hospital for safety. Patient takes his medications regularly. Denies any drug or alcohol use. Denies any AVH. Formulation/clinical reasoning: Thirty year history of bipolar disorder. Currently severely depressed. Symptoms seem to be moderately well treated with Abilify and Depakote however patient chronically gets depressed every August. He wants medication management now to help relieve his current depression and prevent future depressive episodes. Discussed options. Patient already seems to have some medication side effects including possible parkinsonian and TD so would like to avoid adding another antipsychotic or increasing Abilify. Considered Wellbutrin however since a triggered his last manic episode, probably not worth the risk. For now will get Depakote level and see if there is room to increase this medication before adding another. Hospital course: 10/26 little better but thinks it because he's here on the unit and unable to hurt himself, which is relieving; also feels therapeutic environment helpful. He still has SI but it's less intense and he can dismiss it, though not back to baseline. Reviewed depakote level which is subtherapeutic and pt agrees to increase dose, switch to Long acting and make it once a day. He's hoping not to add a new med if possible. 10/27 pt says feeling better, but still thinks mostly due to feeling safe on the unit. Says not back to baseline but at a 5/10 (10 being regular self). He asks if he can retry Wellbutrin; service writer advisor discussed risks since made him manic; will wait until increased dose of Depakote reaches steady state to decide 10/28 Patient reports depression seems to be returning and he thinks the brief reprieve was just being in a new environment. Also patient had very poor sleep last night, waking up at 02:00 and has been up since. Discussed options and agreed to wait to see what Depakote level as which is being drawn tomorrow. Discussed behavioral activation; patient did go to group yesterday. Says he will continue to push himself to be interactive discussed TD; he is interested in in[facility]rezza 10/29 Patient says his mood is starting to feel little better today and of note his affect is somewhat brighter. Discussed medication regimen and history. Patient said that he was started on Abilify about a year ago for help with depression; he says his bilateral hand tremor and TD both started after he was initiated on Abilify and was never present prior. Discussed options for medication and as Depakote level is quite low, he agrees to increasing Depakote dose now; will also lower Abilify Approach to Medication management: -Perhaps increasing Depakote will help with depression; once Depakote is at a safe therapeutic level will then consider Wellbutrin for depression -Since Abilify seems to be the cause of TD/tremor and was started only a year ago for depression, will see if increasing Depakote could make Abilify unnecessary; conversely would consider trying Latuda or Vraylar which can both help with bipolar depression but are lower risk for TD -Patient requires inpatient level of care for medication management given that he becomes suicidal when either depressed or manic; in addition to safety, medication changes require monitoring patient closely, including monitoring Depakote levels which can not be safely in the outpatient setting Plan: CV Q 15 minutes Increase Depakote ER 2000 mg qhs (DC Depakote sprinkles 500 mg b.i.d. ); previous Depakote level was subtherapeutic -Depakote level just in therapeutic range Reduce Abilify 10 mg daily; will consider tapering and discontinuing since it seems to be cause of TD -once Depakote is at a safe therapeutic level will consider Wellbutrin for depression; otherwise risk triggering anamaria Also considering Latuda verse Vraylar Continue other home medications Collateral Patient educated on: diagnosis, medication risk/benefits and therapeutic strategies Informed Consent: understands Reason for continued inpatient stay Substantial Risk for: rapid decompensation Time Spent With Patient Time: Total time managing care of this patient today ____ minutes.
[2024-10-29] MEDS: Acetaminophen 325 MG TABLET 650 MG PO ×2 (14:47→20:54)
[2024-10-29] MEDS: Divalproex Sodium ER 500 MG TAB.ER.24H PO (14:47)
[2024-10-29 20:00] VITALS: BP 138/79; PULSE 78; TEMP 36.4; O2SAT 98
[2024-10-29 20:55] VITALS: BP 138/79
[2024-10-29] MEDS: traZODone HCL 100 MG TABLET PO (20:55)
[2024-10-29] MEDS: Divalproex Sodium ER 500 MG TAB.ER.24H 2000 MG PO (20:55)
[2024-10-29] MEDS: cloNIDine HCL 0.1 MG TABLET PO (20:55)
[2024-10-29] MEDS: Melatonin 3 MG TABLET PO (20:56)
[2024-10-30 08:00] VITALS: BP 142/94; PULSE 68; RESP 18; TEMP 36.4; O2SAT 99
[2024-10-30 08:54] VITALS: BP 142/94
[2024-10-30] MEDS: Propranolol HCL 20 MG TABLET 60 MG PO (08:54)
[2024-10-30] MEDS: Tamsulosin HCL 0.4 MG CAPSULE PO (08:54)
[2024-10-30] MEDS: Multivitamin TABLET 1 TAB PO (08:55)
[2024-10-30] MEDS: Famotidine 20 MG TABLET PO ×2 (08:55→20:50)
[2024-10-30] MEDS: ARIPiprazole 5 MG TABLET PO (08:55)
[2024-10-30] MEDS: lisinopriL 5 MG TABLET PO (08:55)
[2024-10-30] MEDS: Atorvastatin Calcium 10 MG TABLET PO (08:55)
[2024-10-30] MEDS: Acetaminophen 325 MG TABLET 650 MG PO (13:07)
--- NOTE | 2024-10-30 14:15 | P.PNPSI_ITS ---
Subjective Subjective Date of Service: 10/30/24 Reason For Visit: Bipolar Disorder Interim History: Met with patient; discussed with team Patient depressed. SI remains with thoughts to OD on tylenol. Pushing self to go to groups. Discussed medication management further, including Depakote, tapering down Abilify and either starting Wellbutrin verse [place] verse Latuda Mental Status Exam Mental Status Exam Narrative: Pt is alert and oriented; behavior is cooperative, isolative, calm; patient is not in distress; dressed in casual attire, scruffy; bilateral hand tremor, some pill rolling; some involuntary mouth movements; mood is described as depressed and affect congruent, downcast; eye contact appropriate; Speech is still a little soft and slow; still with psychomotor retardation; thought process is organized and goal directed; Thought content is on treatment; otherwise pertinent to relevant topics and without any delusional content, paranoid ideations or grandiosity; intermittent positive SI (with thoughts to OD on Tylenol); no HI. Denies AVH and there is no evidence of perceptual disturbance. Patients insight and judgment impaired Diagnostics Vital Signs (24Hr): Vital Signs - 24 hr 10/29/24 20:00 10/29/24 20:55 10/30/24 08:00 Temperature 97.6 F 97.5 F Pulse Rate 78 68 Respiratory Rate 18 Blood Pressure 138/79 138/79 142/94 H Pulse Oximetry 98 99 Oxygen Delivery Method Room Air Room Air 10/30/24 08:54 Temperature Pulse Rate Respiratory Rate Blood Pressure 142/94 H Pulse Oximetry Oxygen Delivery Method BMI result Body Mass Index 35.9 Labs 10/25/24 09:50 Labs: Laboratory Results - last 48 hr 10/29/24 08:53 Total Bilirubin 0.3 Direct Bilirubin 0.1 AST 19 ALT 24 Alkaline Phosphatase 81 Ammonia 38 Total Protein 7.6 Albumin 4.0 Valproic Acid 55.1 Medications Medications Current Medications Acetaminophen (Acetaminophen 325 Mg Tablet) 650 mg PO Q6H PRN PRN Reason: Headache/Pain, Scale 1-10 Last Admin: 10/30/24 13:07 Dose: 650 mg Al Hydroxide/Mg Hydroxide (Magnesium Hydrox/Alum Hydrox 30 Ml Oral.Susp) 30 ml PO Q6H PRN PRN Reason: Heartburn/Nausea Aripiprazole (Aripiprazole 5 Mg Tablet) 5 mg PO DAILY [facility] Last Admin: 10/30/24 08:55 Dose: 5 mg Atorvastatin Calcium (Atorvastatin Calcium 10 Mg Tablet) 10 mg PO DAILY [facility] Last Admin: 10/30/24 08:55 Dose: 10 mg Clonidine HCl (Clonidine Hcl 0.1 Mg Tablet) 0.1 mg PO BEDTIME [facility]; Protocol Last Admin: 10/29/24 20:55 Dose: 0.1 mg Divalproex Sodium (Divalproex Sodium Er 500 Mg Tab.Er.24h) 2,000 mg PO BEDTIME [facility] Last Admin: 10/29/24 20:55 Dose: 2,000 mg Famotidine (Famotidine 20 Mg Tablet) 20 mg PO BID [facility] Last Admin: 10/30/24 08:55 Dose: 20 mg Hydroxyzine HCl (Hydroxyzine Hcl 25 Mg Tablet) 25 mg PO Q6H PRN PRN Reason: mild anxiety Lisinopril (Lisinopril 5 Mg Tablet) 5 mg PO DAILY [facility]; Protocol Last Admin: 10/30/24 08:55 Dose: 5 mg Magnesium Hydroxide (Milk Of Magnesia 30 Ml Oral.Susp) 30 ml PO DAILY PRN PRN Reason: Constipation Melatonin (Melatonin 3 Mg Tablet) 3 mg PO BEDTIME [facility] Last Admin: 10/29/24 20:56 Dose: 3 mg Multivitamins/Vitamin C (Multivitamin Tablet) 1 tab PO DAILY [facility] Last Admin: 10/30/24 08:55 Dose: 1 tab Nicotine Polacrilex (Nicotine Polacrilex 2 Mg Gum) 4 mg BUCCAL Q2H PRN PRN Reason: Nicotine Cravings Ondansetron HCl (Ondansetron Odt 4 Mg Tab.Rapdis) 4 mg TRANSLINGU Q8H PRN PRN Reason: Nausea And Vomiting Propranolol HCl (Propranolol Hcl 20 Mg Tablet) 60 mg PO DAILY [facility]; Protocol Last Admin: 10/30/24 08:54 Dose: 60 mg Senna (Sennosides 8.6 Mg Tablet) 17.2 mg PO BEDTIME PRN PRN Reason: Constipation Tamsulosin HCl (Tamsulosin Hcl 0.4 Mg Capsule) 0.4 mg PO DAILY [facility] Last Admin: 10/30/24 08:54 Dose: 0.4 mg Trazodone HCl (Trazodone Hcl 50 Mg Tablet) 50 mg PO BEDTIME [facility]X1 PRN PRN Reason: Insomnia Trazodone HCl (Trazodone Hcl 100 Mg Tablet) 100 mg PO BEDTIME [facility] Last Admin: 10/29/24 20:55 Dose: 100 mg Allergies Allergies Allergy/AdvReac Type Severity Reaction Status Date / Time No Known Allergies Allergy Verified 10/24/24 20:52 Assessment & Plan Assessment & Plan (1) Bipolar I disorder: Status: Acute Code(s): F31.9 - Bipolar disorder, unspecified Plan Patient is a 58-year-old male with history of bipolar disorder who self-presents for worsening depression and SI in the face and verses father's . Patient reports that he has had bipolar disorder for 30 years and has been and now the hospital many times; however he has been more stable lately and hospitalized once every 8 months. For the past 6 months he has been doing overall well, good enough, living at his senior living which he says is not bad. As August approached, the anniversary of his father's , as usual he started to get depressed. Over the next month and a half his depression increased became more severe where he had little interest in things, low energy, poor concentration, increased appetite, increased guilty feelings and then over the past 3 weeks suicidal ideation. Patient reports chronic passive SI that is typically fleeting and easy to dismiss; however over the past week it has become more intense and patient developed a plan to overdose on Tylenol. He alerted his senior living staff and said he needed to go to the hospital for safety. Patient takes his medications regularly. Denies any drug or alcohol use. Denies any AVH. Formulation/clinical reasoning: Thirty year history of bipolar disorder. Currently severely depressed. Symptoms seem to be moderately well treated with Abilify and Depakote however patient chronically gets depressed every August. He wants medication management now to help relieve his current depression and prevent future depressive episodes. Discussed options. Patient already seems to have some medication side effects including possible parkinsonian and TD so would like to avoid adding another antipsychotic or increasing Abilify. Considered Wellbutrin however since a triggered his last manic episode, probably not worth the risk. For now will get Depakote level and see if there is room to increase this medication before adding another. Hospital course: 10/26 little better but thinks it because he's here on the unit and unable to hurt himself, which is relieving; also feels therapeutic environment helpful. He still has SI but it's less intense and he can dismiss it, though not back to baseline. Reviewed depakote level which is subtherapeutic and pt agrees to increase dose, switch to Long acting and make it once a day. He's hoping not to add a new med if possible. 10/27 pt says feeling better, but still thinks mostly due to feeling safe on the unit. Says not back to baseline but at a 5/10 (10 being regular self). He asks if he can retry Wellbutrin; greeting card writer discussed risks since made him manic; will wait until increased dose of Depakote reaches steady state to decide 10/28 Patient reports depression seems to be returning and he thinks the brief reprieve was just being in a new environment. Also patient had very poor sleep last night, waking up at 02:00 and has been up since. Discussed options and agreed to wait to see what Depakote level as which is being drawn tomorrow. Discussed behavioral activation; patient did go to group yesterday. Says he will continue to push himself to be interactive discussed TD; he is interested in in[facility] 10/29 Patient says his mood is starting to feel little better today and of note his affect is somewhat brighter. Discussed medication regimen and history. Patient said that he was started on Abilify about a year ago for help with depression; he says his bilateral hand tremor and TD both started after he was initiated on Abilify and was never present prior. Discussed options for medication and as Depakote level is quite low, he agrees to increasing Depakote dose now; will also lower Abilify 10/30 Patient depressed. SI remains with thoughts to OD on tylenol. Pushing self to go to groups. Discussed medication management further, including Depakote, tapering down Abilify and either starting Wellbutrin verse Vraylar verse Latuda Impression: pt remains depressed and with SI with thoughts to overdose on tylenol (which he has done in the past). He does not feel safe off the unit. He has a hx of 26 suicide attempts. Patient is not yet stabilized and continues to require [facility] for continued medication managment. Approach to Medication management: -Perhaps increasing Depakote will help with depression; once Depakote is at a safe therapeutic level will then consider Wellbutrin for depression -Since Abilify seems to be the cause of TD/tremor and was started only a year ago for depression, will see if increasing Depakote could make Abilify unnecessary; conversely would consider trying Latuda or Vraylar which can both help with bipolar depression but are lower risk for TD -Patient requires inpatient level of care for medication management given that his suicidalility is present with both depression and anamaria and he remains at risk for both at this time; in addition to safety, medication changes require monitoring patient closely, including monitoring Depakote levels which can not be safely in the outpatient setting Plan: CV Q 15 minutes Increased Depakote ER 2000 mg qhs (DC Depakote sprinkles 500 mg b.i.d.); previous Depakote level was subtherapeutic -Depakote level just in therapeutic range Reduce Abilify 10 mg daily; will consider tapering and discontinuing since it seems to be cause of TD -once Depakote is at a safe therapeutic level will consider Wellbutrin for depression; otherwise risk triggering anamaria Also considering Latuda verse Vraylar Continue other home medications Collateral Patient educated on: diagnosis, medication risk/benefits and therapeutic strategies Informed Consent: understands Reason for continued inpatient stay Substantial Risk for: harm to self, inability to function and rapid decompensation Time Spent With Patient Time: Total time managing care of this patient today ____ minutes.
[2024-10-30 20:00] VITALS: BP 121/69; PULSE 72; RESP 16; TEMP 36.4; O2SAT 94
[2024-10-30] MEDS: traZODone HCL 100 MG TABLET PO (20:50)
[2024-10-30] MEDS: Divalproex Sodium ER 500 MG TAB.ER.24H 2000 MG PO (20:50)
[2024-10-30] MEDS: Melatonin 3 MG TABLET PO (20:50)
[2024-10-30] MEDS: cloNIDine HCL 0.1 MG TABLET PO (20:50)
[2024-10-31 08:00] VITALS: BP 160/83; PULSE 65; RESP 16; TEMP 36.3; O2SAT 99
[2024-10-31] MEDS: lisinopriL 5 MG TABLET PO (08:41)
[2024-10-31] MEDS: Famotidine 20 MG TABLET PO ×2 (08:41→21:07)
[2024-10-31] MEDS: Propranolol HCL 20 MG TABLET 60 MG PO (08:41)
[2024-10-31] MEDS: Atorvastatin Calcium 10 MG TABLET PO (08:41)
[2024-10-31] MEDS: Tamsulosin HCL 0.4 MG CAPSULE PO (08:41)
[2024-10-31] MEDS: Multivitamin TABLET 1 TAB PO (08:41)
[2024-10-31] MEDS: ARIPiprazole 5 MG TABLET PO (08:41)
--- NOTE | 2024-10-31 10:07 | HO.PSYCHPN ---
Subjective Subjective Date of Service: 10/31/24 Reason For Visit: Bipolar Disorder Interim History: met with pt; discussed with team pt reports mood is a little better, but still depressed; intermittent SI. Discussed options and he wants off Abilify since even at lower dose, TD/tremors are less. Depakote level being drawn tomorrow. discussed case with dr. Davis who agreed at this point, would avoid wellbutrin given risk of triggering anamaria. Latuda vs Vraylar instead. Mental Status Exam Mental Status Exam Narrative: Pt is alert and oriented; behavior is cooperative, isolative, calm; patient is not in distress; dressed in casual attire, scruffy; less bilateral hand tremor/some pill rolling; some involuntary mouth movements but less; mood is described as depressed...maybe a little better and affect congruent, brighter; eye contact appropriate; Speech is still a little soft and slow; still with psychomotor retardation; thought process is organized and goal directed; Thought content is on treatment; otherwise pertinent to relevant topics and without any delusional content, paranoid ideations or grandiosity; intermittent positive SI but less; no HI. Denies AVH and there is no evidence of perceptual disturbance. Patients insight and judgment impaired but improving Diagnostics Vital Signs (24Hr): Vital Signs - 24 hr 10/30/24 20:00 10/31/24 08:00 Temperature 97.6 F 97.3 F Pulse Rate 72 65 Respiratory Rate 16 16 Blood Pressure 121/69 160/83 H Pulse Oximetry 94 99 Oxygen Delivery Method Room Air Room Air BMI result Body Mass Index 35.9 Labs 10/25/24 09:50 Medications Medications Current Medications Acetaminophen (Acetaminophen 325 Mg Tablet) 650 mg PO Q6H PRN PRN Reason: Headache/Pain, Scale 1-10 Last Admin: 10/30/24 13:07 Dose: 650 mg Al Hydroxide/Mg Hydroxide (Magnesium Hydrox/Alum Hydrox 30 Ml Oral.Susp) 30 ml PO Q6H PRN PRN Reason: Heartburn/Nausea Aripiprazole (Aripiprazole 5 Mg Tablet) 5 mg PO DAILY [facility] Last Admin: 10/31/24 08:41 Dose: 5 mg Atorvastatin Calcium (Atorvastatin Calcium 10 Mg Tablet) 10 mg PO DAILY [facility] Last Admin: 10/31/24 08:41 Dose: 10 mg Clonidine HCl (Clonidine Hcl 0.1 Mg Tablet) 0.1 mg PO BEDTIME [facility]; Protocol Last Admin: 10/30/24 20:50 Dose: 0.1 mg Divalproex Sodium (Divalproex Sodium Er 500 Mg Tab.Er.24h) 2,000 mg PO BEDTIME [facility] Last Admin: 10/30/24 20:50 Dose: 2,000 mg Famotidine (Famotidine 20 Mg Tablet) 20 mg PO BID [facility] Last Admin: 10/31/24 08:41 Dose: 20 mg Hydroxyzine HCl (Hydroxyzine Hcl 25 Mg Tablet) 25 mg PO Q6H PRN PRN Reason: mild anxiety Lisinopril (Lisinopril 5 Mg Tablet) 5 mg PO DAILY [facility]; Protocol Last Admin: 10/31/24 08:41 Dose: 5 mg Magnesium Hydroxide (Milk Of Magnesia 30 Ml Oral.Susp) 30 ml PO DAILY PRN PRN Reason: Constipation Melatonin (Melatonin 3 Mg Tablet) 3 mg PO BEDTIME [facility] Last Admin: 10/30/24 20:50 Dose: 3 mg Multivitamins/Vitamin C (Multivitamin Tablet) 1 tab PO DAILY [facility] Last Admin: 10/31/24 08:41 Dose: 1 tab Nicotine Polacrilex (Nicotine Polacrilex 2 Mg Gum) 4 mg BUCCAL Q2H PRN PRN Reason: Nicotine Cravings Ondansetron HCl (Ondansetron Odt 4 Mg Tab.Rapdis) 4 mg TRANSLINGU Q8H PRN PRN Reason: Nausea And Vomiting Propranolol HCl (Propranolol Hcl 20 Mg Tablet) 60 mg PO DAILY [facility]; Protocol Last Admin: 10/31/24 08:41 Dose: 60 mg Senna (Sennosides 8.6 Mg Tablet) 17.2 mg PO BEDTIME PRN PRN Reason: Constipation Tamsulosin HCl (Tamsulosin Hcl 0.4 Mg Capsule) 0.4 mg PO DAILY [facility] Last Admin: 10/31/24 08:41 Dose: 0.4 mg Trazodone HCl (Trazodone Hcl 50 Mg Tablet) 50 mg PO BEDTIME MRX1 PRN PRN Reason: Insomnia Trazodone HCl (Trazodone Hcl 100 Mg Tablet) 100 mg PO BEDTIME [facility] Last Admin: 10/30/24 20:50 Dose: 100 mg Allergies Allergies Allergy/AdvReac Type Severity Reaction Status Date / Time No Known Allergies Allergy Verified 10/24/24 20:52 Assessment & Plan Assessment & Plan (1) Bipolar I disorder: Status: Acute Code(s): F31.9 - Bipolar disorder, unspecified Plan Patient is a 58-year-old male with history of bipolar disorder who self-presents for worsening depression and SI in the face and verses father's . Patient reports that he has had bipolar disorder for 30 years and has been and now the hospital many times; however he has been more stable lately and hospitalized once every 8 months. For the past 6 months he has been doing overall well, good enough, living at his alf which he says is not bad. As August approached, the anniversary of his father's , as usual he started to get depressed. Over the next month and a half his depression increased became more severe where he had little interest in things, low energy, poor concentration, increased appetite, increased guilty feelings and then over the past 3 weeks suicidal ideation. Patient reports chronic passive SI that is typically fleeting and easy to dismiss; however over the past week it has become more intense and patient developed a plan to overdose on Tylenol. He alerted his alf staff and said he needed to go to the hospital for safety. Patient takes his medications regularly. Denies any drug or alcohol use. Denies any AVH. Formulation/clinical reasoning: Thirty year history of bipolar disorder. Currently severely depressed. Symptoms seem to be moderately well treated with Abilify and Depakote however patient chronically gets depressed every August. He wants medication management now to help relieve his current depression and prevent future depressive episodes. Discussed options. Patient already seems to have some medication side effects including possible parkinsonian and TD so would like to avoid adding another antipsychotic or increasing Abilify. Considered Wellbutrin however since a triggered his last manic episode, probably not worth the risk. For now will get Depakote level and see if there is room to increase this medication before adding another. Hospital course: 10/26 little better but thinks it because he's here on the unit and unable to hurt himself, which is relieving; also feels therapeutic environment helpful. He still has SI but it's less intense and he can dismiss it, though not back to baseline. Reviewed depakote level which is subtherapeutic and pt agrees to increase dose, switch to Long acting and make it once a day. He's hoping not to add a new med if possible. 10/27 pt says feeling better, but still thinks mostly due to feeling safe on the unit. Says not back to baseline but at a 5/10 (10 being regular self). He asks if he can retry Wellbutrin; bond writer discussed risks since made him manic; will wait until increased dose of Depakote reaches steady state to decide 10/28 Patient reports depression seems to be returning and he thinks the brief reprieve was just being in a new environment. Also patient had very poor sleep last night, waking up at 02:00 and has been up since. Discussed options and agreed to wait to see what Depakote level as which is being drawn tomorrow. Discussed behavioral activation; patient did go to group yesterday. Says he will continue to push himself to be interactive discussed TD; he is interested in inGrezza 10/29 Patient says his mood is starting to feel little better today and of note his affect is somewhat brighter. Discussed medication regimen and history. Patient said that he was started on Abilify about a year ago for help with depression; he says his bilateral hand tremor and TD both started after he was initiated on Abilify and was never present prior. Discussed options for medication and as Depakote level is quite low, he agrees to increasing Depakote dose now; will also lower Abilify 10/30 Patient depressed. SI remains with thoughts to OD on tylenol. Pushing self to go to groups. Discussed medication management further, including Depakote, tapering down Abilify and either starting Wellbutrin verse Vraylar verse Latuda 10/31 pt reports mood is a little better, but still depressed; intermittent SI. Discussed options and he wants off Abilify since even at lower dose, TD/tremors are less. Depakote level being drawn tomorrow. -discussed case with dr. Davis who agreed at this point, would avoid wellbutrin given risk of triggering naamaria. Latuda vs Vraylar instead. Impression: pt remains depressed and with SI with thoughts to overdose on tylenol (which he has done in the past). He does not feel safe off the unit. He has a hx of 26 suicide attempts. Patient is not yet stabilized and continues to require [facility] for continued medication managment. Approach to Medication management: -Perhaps increasing Depakote will help with depression; once Depakote is at a safe therapeutic level will then consider Wellbutrin for depression -Since Abilify seems to be the cause of TD/tremor and was started only a year ago for depression, will see if increasing Depakote could make Abilify unnecessary; conversely would consider trying Latuda or Vraylar which can both help with bipolar depression but are lower risk for TD -Patient requires inpatient level of care for medication management given that his suicidalility is present with both depression and anamaria and he remains at risk for both at this time; in addition to safety, medication changes require monitoring patient closely, including monitoring Depakote levels which can not be safely in the outpatient setting Plan: CV Q 15 minutes Increased Depakote ER 2000 mg qhs (DC Depakote sprinkles 500 mg b.i.d.); previous Depakote level was subtherapeutic -Depakote level pending DC Abilify cause of tremors/TD; other options available -considering Latuda verse Vraylar Continue other home medications Collateral Patient educated on: diagnosis and medication risk/benefits Informed Consent: understands Reason for continued inpatient stay Substantial Risk for: rapid decompensation Time Spent With Patient Time: Total time managing care of this patient today ____ minutes.
[2024-10-31 20:00] VITALS: BP 157/63; PULSE 83; RESP 18; TEMP 36.7; O2SAT 97
[2024-10-31] MEDS: Divalproex Sodium ER 500 MG TAB.ER.24H 2000 MG PO (21:07)
[2024-10-31] MEDS: Melatonin 3 MG TABLET PO (21:07)
[2024-10-31 21:08] VITALS: BP 157/93
[2024-10-31] MEDS: cloNIDine HCL 0.1 MG TABLET PO (21:08)
[2024-10-31] MEDS: traZODone HCL 100 MG TABLET PO (21:08)
[2024-11-01] MEDS: traZODone HCL 50 MG TABLET PO (01:20)
[2024-11-01] MEDS: Acetaminophen 325 MG TABLET 650 MG PO ×2 (06:27→16:29)
[2024-11-01 07:00] VITALS: BMI 37.4
[2024-11-01 08:00] VITALS: BP 143/88; PULSE 75; TEMP 36.4; O2SAT 98
[2024-11-01] MEDS: lisinopriL 5 MG TABLET PO (08:19)
[2024-11-01] MEDS: Multivitamin TABLET 1 TAB PO (08:19)
[2024-11-01] MEDS: Famotidine 20 MG TABLET PO ×2 (08:19→20:38)
[2024-11-01] MEDS: Propranolol HCL 20 MG TABLET 60 MG PO (08:19)
[2024-11-01] MEDS: Tamsulosin HCL 0.4 MG CAPSULE PO (08:19)
[2024-11-01] MEDS: Atorvastatin Calcium 10 MG TABLET PO (08:19)
--- NOTE | 2024-11-01 10:08 | P.PNPSI_ITS ---
Subjective Subjective Date of Service: 11/01/24 Reason For Visit: Bipolar Disorder Interim History: Met with patient; discussed with team Patient reports that his mood is much better and his affect is noticeably brighter as he yells out a hello to this manual writer from down the egan. He says he is feeling good. Although patient's Depakote dose increased and his mood has significantly improved, Depakote level is lower than it was. Not sure why that is but given that patient's is much improved, even though he is now off Abilify, will leave Depakote dose as it is. Despite patient feeling better, he says depression still lingers and he feels it would be gilbert to start him on another medication for bipolar depression which has been the plan and given the discontinuation of Abilify. Discussed options, risks/side effects and patient agrees on Latuda. Mental Status Exam Mental Status Exam Narrative: Pt is alert and oriented; behavior is cooperative, friendly, calm, more social; patient is not in distress; dressed in casual attire, scruffy but with adequate hygiene and grooming; less bilateral hand tremor/some pill rolling; some involuntary mouth movements but less; mood is described as good and affect congruent, noticeably brighter; eye contact appropriate; Speech is normal rate, volume and prosody; no psychomotor retardation; thought process is organized and goal directed; Thought content is on treatment; otherwise pertinent to relevant topics and without any delusional content, paranoid ideations or grandiosity; denies SI; no HI. Denies AVH and there is no evidence of perceptual disturbance. Patients insight and judgment fair Diagnostics Vital Signs (24Hr): Vital Signs - 24 hr 10/31/24 20:00 10/31/24 21:08 11/01/24 08:00 Temperature 98.0 F 97.6 F Pulse Rate 83 75 Respiratory Rate 18 Blood Pressure 157/63 H 157/93 H 143/88 H Pulse Oximetry 97 98 Oxygen Delivery Method Room Air Room Air BMI result Body Mass Index 35.9 Labs 10/25/24 09:50 Medications Medications Current Medications Acetaminophen (Acetaminophen 325 Mg Tablet) 650 mg PO Q6H PRN PRN Reason: Headache/Pain, Scale 1-10 Last Admin: 11/01/24 06:27 Dose: 650 mg Al Hydroxide/Mg Hydroxide (Magnesium Hydrox/Alum Hydrox 30 Ml Oral.Susp) 30 ml PO Q6H PRN PRN Reason: Heartburn/Nausea Atorvastatin Calcium (Atorvastatin Calcium 10 Mg Tablet) 10 mg PO DAILY [facility] Last Admin: 11/01/24 08:19 Dose: 10 mg Clonidine HCl (Clonidine Hcl 0.1 Mg Tablet) 0.1 mg PO BEDTIME [facility]; Protocol Last Admin: 10/31/24 21:08 Dose: 0.1 mg Divalproex Sodium (Divalproex Sodium Er 500 Mg Tab.Er.24h) 2,000 mg PO BEDTIME [facility] Last Admin: 10/31/24 21:07 Dose: 2,000 mg Famotidine (Famotidine 20 Mg Tablet) 20 mg PO BID [facility] Last Admin: 11/01/24 08:19 Dose: 20 mg Hydroxyzine HCl (Hydroxyzine Hcl 25 Mg Tablet) 25 mg PO Q6H PRN PRN Reason: mild anxiety Lisinopril (Lisinopril 5 Mg Tablet) 5 mg PO DAILY [facility]; Protocol Last Admin: 11/01/24 08:19 Dose: 5 mg Magnesium Hydroxide (Milk Of Magnesia 30 Ml Oral.Susp) 30 ml PO DAILY PRN PRN Reason: Constipation Melatonin (Melatonin 3 Mg Tablet) 3 mg PO BEDTIME [facility] Last Admin: 10/31/24 21:07 Dose: 3 mg Multivitamins/Vitamin C (Multivitamin Tablet) 1 tab PO DAILY [facility] Last Admin: 11/01/24 08:19 Dose: 1 tab Nicotine Polacrilex (Nicotine Polacrilex 2 Mg Gum) 4 mg BUCCAL Q2H PRN PRN Reason: Nicotine Cravings Ondansetron HCl (Ondansetron Odt 4 Mg Tab.Rapdis) 4 mg TRANSLINGU Q8H PRN PRN Reason: Nausea And Vomiting Propranolol HCl (Propranolol Hcl 20 Mg Tablet) 60 mg PO DAILY [facility]; Protocol Last Admin: 11/01/24 08:19 Dose: 60 mg Senna (Sennosides 8.6 Mg Tablet) 17.2 mg PO BEDTIME PRN PRN Reason: Constipation Tamsulosin HCl (Tamsulosin Hcl 0.4 Mg Capsule) 0.4 mg PO DAILY [facility] Last Admin: 11/01/24 08:19 Dose: 0.4 mg Trazodone HCl (Trazodone Hcl 50 Mg Tablet) 50 mg PO BEDTIME MRX1 PRN PRN Reason: Insomnia Last Admin: 11/01/24 01:20 Dose: 50 mg Trazodone HCl (Trazodone Hcl 100 Mg Tablet) 100 mg PO BEDTIME [facility] Last Admin: 10/31/24 21:08 Dose: 100 mg Allergies Allergies Allergy/AdvReac Type Severity Reaction Status Date / Time No Known Allergies Allergy Verified 10/24/24 20:52 Assessment & Plan Assessment & Plan (1) Bipolar I disorder: Status: Acute Code(s): F31.9 - Bipolar disorder, unspecified Plan Patient is a 58-year-old male with history of bipolar disorder who self-presents for worsening depression and SI in the face and verses father's . Patient reports that he has had bipolar disorder for 30 years and has been and now the hospital many times; however he has been more stable lately and hospitalized once every 8 months. For the past 6 months he has been doing overall well, good enough, living at his care home which he says is not bad. As August, the anniversary of his father's , as usual he started to get depressed. Over the next month and a half his depression increased became more severe where he had little interest in things, low energy, poor concentration, increased appetite, increased guilty feelings and then over the past 3 weeks suicidal ideation. Patient reports chronic passive SI that is typically fleeting and easy to dismiss; however over the past week it has become more intense and patient developed a plan to overdose on Tylenol. He alerted his care home staff and said he needed to go to the hospital for safety. Patient takes his medications regularly. Denies any drug or alcohol use. Denies any AVH. Formulation/clinical reasoning: Thirty year history of bipolar disorder. Currently severely depressed. Symptoms seem to be moderately well treated with Abilify and Depakote however patient chronically gets depressed every August. He wants medication management now to help relieve his current depression and prevent future depressive episodes. Discussed options. Patient already seems to have some medication side effects including possible parkinsonian and TD so would like to avoid adding another antipsychotic or increasing Abilify. Considered Wellbutrin however since a triggered his last manic episode, probably not worth the risk. For now will get Depakote level and see if there is room to increase this medication before adding another. Hospital course: 10/26 little better but thinks it because he's here on the unit and unable to hurt himself, which is relieving; also feels therapeutic environment helpful. He still has SI but it's less intense and he can dismiss it, though not back to baseline. Reviewed depakote level which is subtherapeutic and pt agrees to increase dose, switch to Long acting and make it once a day. He's hoping not to add a new med if possible. 10/27 pt says feeling better, but still thinks mostly due to feeling safe on the unit. Says not back to baseline but at a 5/10 (10 being regular self). He asks if he can retry Wellbutrin; manual writer discussed risks since made him manic; will wait until increased dose of Depakote reaches steady state to decide 10/28 Patient reports depression seems to be returning and he thinks the brief reprieve was just being in a new environment. Also patient had very poor sleep last night, waking up at 02:00 and has been up since. Discussed options and agreed to wait to see what Depakote level as which is being drawn tomorrow. Discussed behavioral activation; patient did go to group yesterday. Says he will continue to push himself to be interactive discussed TD; he is interested in inGrezza 10/29 Patient says his mood is starting to feel little better today and of note his affect is somewhat brighter. Discussed medication regimen and history. Patient said that he was started on Abilify about a year ago for help with depression; he says his bilateral hand tremor and TD both started after he was initiated on Abilify and was never present prior. Discussed options for medication and as Depakote level is quite low, he agrees to increasing Depakote dose now; will also lower Abilify 10/30 Patient depressed. SI remains with thoughts to OD on tylenol. Pushing self to go to groups. Discussed medication management further, including Depakote, tapering down Abilify and either starting Wellbutrin verse Vraylar verse Latuda Approach to Medication management: -Perhaps increasing Depakote will help with depression; once Depakote is at a safe therapeutic level will then consider Wellbutrin for depression -Since Abilify seems to be the cause of TD/tremor and was started only a year ago for depression, will see if increasing Depakote could make Abilify unnecessary; conversely would consider trying Latuda or Vraylar which can both help with bipolar depression but are lower risk for TD -Patient requires inpatient level of care for medication management given that his suicidalility is present with both depression and anamaria and he remains at risk for both at this time; in addition to safety, medication changes require monitoring patient closely, including monitoring Depakote levels which can not be safely in the outpatient setting 10/31 pt reports mood is a little better, but still depressed; intermittent SI. Discussed options and he wants off Abilify since even at lower dose, TD/tremors are less. Depakote level being drawn tomorrow. -discussed case with dr. Davis who agreed at this point, would avoid wellbutrin given risk of triggering anamaria. Latuda vs Vraylar instead. 11/01 Patient reports that his mood is much better and his affect is noticeably brighter as he yells out a hello to this manual writer from down the egan. He says he is feeling good. No SI at all Although patient's Depakote dose increased and his mood has significantly improved, Depakote level is lower than it was. Not sure why that is but given that patient's is much improved, even though he is now off Abilify, will leave Depakote dose as it is. Despite patient feeling better, he says depression still lingers and he feels it would be gilbert to start him on another medication for bipolar depression which has been the plan and given the discontinuation of Abilify. Discussed options, risks/side effects and patient agrees on Latuda. Plan: CV Q 15 minutes Start Latuda 20 mg q.h.s. with snack Continue Depakote ER 2000 mg qhs (DC Depakote sprinkles 500 mg b.i.d.); previous Depakote level was subtherapeutic -Depakote level still subtherapeutic; associated lab work WNL DC Abilify cause of tremors/TD; other options available -considering Latuda verse Vraylar Continue other home medications Collateral Patient educated on: diagnosis and medication risk/benefits Informed Consent: understands Reason for continued inpatient stay Substantial Risk for: rapid decompensation Time Spent With Patient Time: Total time managing care of this patient today ____ minutes.
[2024-11-01 15:20] LABS: Ammonia 43 umol/L (13-55)
[2024-11-01 15:37] LABS: Alanine Aminotransferase 22 U/L (0-40); Albumin Level 3.7 g/dL (3.5-5.0); Aspartate Amino Transferase 17 U/L (5-37); Bilirubin Direct < 0.2 mg/dL (0.0-0.5); Bilirubin Total 0.2 mg/dL (0.0-1.0); Total Protein 7.1 g/dL (6.5-8.0)
[2024-11-01 16:01] LABS: Alkaline Phosphatase 86 U/L (39-117); Valproate 48.7 mcg/mL (50.0-100.0)
[2024-11-01 19:49] VITALS: BP 121/76; PULSE 73; TEMP 36.4; O2SAT 94
[2024-11-01] MEDS: Melatonin 3 MG TABLET PO (20:38)
[2024-11-01] MEDS: Divalproex Sodium ER 500 MG TAB.ER.24H 2000 MG PO (20:38)
[2024-11-01] MEDS: Lurasidone HCl 20 MG TABLET PO (20:38)
[2024-11-01] MEDS: cloNIDine HCL 0.1 MG TABLET PO (20:38)
[2024-11-01] MEDS: traZODone HCL 100 MG TABLET PO (20:38)
[2024-11-02 08:00] VITALS: BP 176/83; PULSE 71; TEMP 36.4; O2SAT 97
[2024-11-02] MEDS: Atorvastatin Calcium 10 MG TABLET PO (08:42)
[2024-11-02] MEDS: Propranolol HCL 20 MG TABLET 60 MG PO (08:42)
[2024-11-02] MEDS: Multivitamin TABLET 1 TAB PO (08:42)
[2024-11-02] MEDS: lisinopriL 5 MG TABLET PO (08:42)
[2024-11-02] MEDS: Famotidine 20 MG TABLET PO ×2 (08:42→21:27)
[2024-11-02] MEDS: Tamsulosin HCL 0.4 MG CAPSULE PO (08:42)
[2024-11-02] MEDS: Acetaminophen 325 MG TABLET 650 MG PO (08:42)
--- NOTE | 2024-11-02 14:57 | HO.PSYCHPN ---
Subjective Subjective Date of Service: 11/02/24 Reason For Visit: Bipolar Disorder Interim History: Active on unit. Patient reports feeling pretty good today; denies any depression or anxiety. He reports sleeping well and denies any issues at this time. denies SI/HI/VH/AH. pt was told to reach out to staff if anything changes. Medication Compliance: Yes Side effects from medications: No Attending Groups: Yes Mental Status Exam Mental Status Exam Patient Appearance: Appropriate Patient Orientation: Person, Place, Time and Situation Level of Consciousness: Awake Patient Behavior: Cooperative and Good Eye Contact Mood Description: Calm Affect Description: Calm Ability to Follow Directions: Good Speech Pattern: Clear Hallucinations: None Thought Process: Intact Thought Content: positive for Intact Diagnostics Vital Signs (24Hr): Vital Signs - 24 hr 11/01/24 19:49 11/02/24 08:00 Temperature 97.6 F 97.5 F Pulse Rate 73 71 Blood Pressure 121/76 176/83 H Pulse Oximetry 94 97 Oxygen Delivery Method Room Air Room Air BMI result Body Mass Index 37.4 Labs 10/25/24 09:50 Labs: Laboratory Results - last 48 hr 11/01/24 15:08 Total Bilirubin 0.2 Direct Bilirubin < 0.2 AST 17 ALT 22 Alkaline Phosphatase 86 Ammonia 43 Total Protein 7.1 Albumin 3.7 Valproic Acid 48.7 L Medications Medications Current Medications Acetaminophen (Acetaminophen 325 Mg Tablet) 650 mg PO Q6H PRN PRN Reason: Headache/Pain, Scale 1-10 Last Admin: 11/02/24 08:42 Dose: 650 mg Al Hydroxide/Mg Hydroxide (Magnesium Hydrox/Alum Hydrox 30 Ml Oral.Susp) 30 ml PO Q6H PRN PRN Reason: Heartburn/Nausea Atorvastatin Calcium (Atorvastatin Calcium 10 Mg Tablet) 10 mg PO DAILY [facility] Last Admin: 11/02/24 08:42 Dose: 10 mg Clonidine HCl (Clonidine Hcl 0.1 Mg Tablet) 0.1 mg PO BEDTIME [facility]; Protocol Last Admin: 11/01/24 20:38 Dose: 0.1 mg Divalproex Sodium (Divalproex Sodium Er 500 Mg Tab.Er.24h) 2,000 mg PO BEDTIME [facility] Last Admin: 11/01/24 20:38 Dose: 2,000 mg Famotidine (Famotidine 20 Mg Tablet) 20 mg PO BID [facility] Last Admin: 11/02/24 08:42 Dose: 20 mg Hydroxyzine HCl (Hydroxyzine Hcl 25 Mg Tablet) 25 mg PO Q6H PRN PRN Reason: mild anxiety Lisinopril (Lisinopril 5 Mg Tablet) 5 mg PO DAILY [facility]; Protocol Last Admin: 11/02/24 08:42 Dose: 5 mg Lurasidone HCl (Lurasidone Hcl 20 Mg Tablet) 20 mg PO BEDTIME [facility] Last Admin: 11/01/24 20:38 Dose: 20 mg Magnesium Hydroxide (Milk Of Magnesia 30 Ml Oral.Susp) 30 ml PO DAILY PRN PRN Reason: Constipation Melatonin (Melatonin 3 Mg Tablet) 3 mg PO BEDTIME [facility] Last Admin: 11/01/24 20:38 Dose: 3 mg Multivitamins/Vitamin C (Multivitamin Tablet) 1 tab PO DAILY [facility] Last Admin: 11/02/24 08:42 Dose: 1 tab Nicotine Polacrilex (Nicotine Polacrilex 2 Mg Gum) 4 mg BUCCAL Q2H PRN PRN Reason: Nicotine Cravings Ondansetron HCl (Ondansetron Odt 4 Mg Tab.Rapdis) 4 mg TRANSLINGU Q8H PRN PRN Reason: Nausea And Vomiting Propranolol HCl (Propranolol Hcl 20 Mg Tablet) 60 mg PO DAILY [facility]; Protocol Last Admin: 11/02/24 08:42 Dose: 60 mg Senna (Sennosides 8.6 Mg Tablet) 17.2 mg PO BEDTIME PRN PRN Reason: Constipation Tamsulosin HCl (Tamsulosin Hcl 0.4 Mg Capsule) 0.4 mg PO DAILY [facility] Last Admin: 11/02/24 08:42 Dose: 0.4 mg Trazodone HCl (Trazodone Hcl 50 Mg Tablet) 50 mg PO BEDTIME MRX1 PRN PRN Reason: Insomnia Last Admin: 11/01/24 01:20 Dose: 50 mg Trazodone HCl (Trazodone Hcl 100 Mg Tablet) 100 mg PO BEDTIME [facility] Last Admin: 11/01/24 20:38 Dose: 100 mg Allergies Allergies Allergy/AdvReac Type Severity Reaction Status Date / Time No Known Allergies Allergy Verified 10/24/24 20:52 Assessment & Plan Assessment & Plan (1) Bipolar I disorder: Status: Acute Code(s): F31.9 - Bipolar disorder, unspecified Plan Patient is a 58-year-old male with history of bipolar disorder who self-presents for worsening depression and SI in the face and verses father's . Patient reports that he has had bipolar disorder for 30 years and has been and now the hospital many times; however he has been more stable lately and hospitalized once every 8 months. For the past 6 months he has been doing overall well, good enough, living at his long-term which he says is not bad. As August approached, the anniversary of his father's , as usual he started to get depressed. Over the next month and a half his depression increased became more severe where he had little interest in things, low energy, poor concentration, increased appetite, increased guilty feelings and then over the past 3 weeks suicidal ideation. Patient reports chronic passive SI that is typically fleeting and easy to dismiss; however over the past week it has become more intense and patient developed a plan to overdose on Tylenol. He alerted his long-term staff and said he needed to go to the hospital for safety. Patient takes his medications regularly. Denies any drug or alcohol use. Denies any AVH. Formulation/clinical reasoning: Thirty year history of bipolar disorder. Currently severely depressed. Symptoms seem to be moderately well treated with Abilify and Depakote however patient chronically gets depressed every August. He wants medication management now to help relieve his current depression and prevent future depressive episodes. Discussed options. Patient already seems to have some medication side effects including possible parkinsonian and TD so would like to avoid adding another antipsychotic or increasing Abilify. Considered Wellbutrin however since a triggered his last manic episode, probably not worth the risk. For now will get Depakote level and see if there is room to increase this medication before adding another. Hospital course: 10/26 little better but thinks it because he's here on the unit and unable to hurt himself, which is relieving; also feels therapeutic environment helpful. He still has SI but it's less intense and he can dismiss it, though not back to baseline. Reviewed depakote level which is subtherapeutic and pt agrees to increase dose, switch to Long acting and make it once a day. He's hoping not to add a new med if possible. 10/27 pt says feeling better, but still thinks mostly due to feeling safe on the unit. Says not back to baseline but at a 5/10 (10 being regular self). He asks if he can retry Wellbutrin; writer technical publications discussed risks since made him manic; will wait until increased dose of Depakote reaches steady state to decide 10/28 Patient reports depression seems to be returning and he thinks the brief reprieve was just being in a new environment. Also patient had very poor sleep last night, waking up at 02:00 and has been up since. Discussed options and agreed to wait to see what Depakote level as which is being drawn tomorrow. Discussed behavioral activation; patient did go to group yesterday. Says he will continue to push himself to be interactive discussed TD; he is interested in inGrezza 10/29 Patient says his mood is starting to feel little better today and of note his affect is somewhat brighter. Discussed medication regimen and history. Patient said that he was started on Abilify about a year ago for help with depression; he says his bilateral hand tremor and TD both started after he was initiated on Abilify and was never present prior. Discussed options for medication and as Depakote level is quite low, he agrees to increasing Depakote dose now; will also lower Abilify 10/30 Patient depressed. SI remains with thoughts to OD on tylenol. Pushing self to go to groups. Discussed medication management further, including Depakote, tapering down Abilify and either starting Wellbutrin verse Vraylar verse Latuda Approach to Medication management: -Perhaps increasing Depakote will help with depression; once Depakote is at a safe therapeutic level will then consider Wellbutrin for depression -Since Abilify seems to be the cause of TD/tremor and was started only a year ago for depression, will see if increasing Depakote could make Abilify unnecessary; conversely would consider trying Latuda or Vraylar which can both help with bipolar depression but are lower risk for TD -Patient requires inpatient level of care for medication management given that his suicidalility is present with both depression and anamaria and he remains at risk for both at this time; in addition to safety, medication changes require monitoring patient closely, including monitoring Depakote levels which can not be safely in the outpatient setting 10/31 pt reports mood is a little better, but still depressed; intermittent SI. Discussed options and he wants off Abilify since even at lower dose, TD/tremors are less. Depakote level being drawn tomorrow. -discussed case with dr. Davis who agreed at this point, would avoid wellbutrin given risk of triggering anamaria. Latuda vs Vraylar instead. 11/01 Patient reports that his mood is much better and his affect is noticeably brighter as he yells out a hello to this writer technical publications from down the [employer]gan. He says he is feeling good. No SI at all Although patient's Depakote dose increased and his mood has significantly improved, Depakote level is lower than it was. Not sure why that is but given that patient's is much improved, even though he is now off Abilify, will leave Depakote dose as it is. Despite patient feeling better, he says depression still lingers and he feels it would be gilbert to start him on another medication for bipolar depression which has been the plan and given the discontinuation of Abilify. Discussed options, risks/side effects and patient agrees on Latuda. 11/02: Active on unit. Patient reports feeling pretty good today; denies any depression or anxiety. He reports sleeping well and denies any issues at this time. denies SI/HI/VH/AH. pt was told to reach out to staff if anything changes. Continue current tx plan. Plan: CV Q 15 minutes Start Latuda 20 mg q.h.s. with snack Continue Depakote ER 2000 mg qhs (DC Depakote sprinkles 500 mg b.i.d.); previous Depakote level was subtherapeutic -Depakote level still subtherapeutic; associated lab work WNL DC Abilify cause of tremors/TD; other options available -considering Latuda verse Vraylar Continue other home medications Collateral Patient educated on: medication risk/benefits Reason for continued inpatient stay Substantial Risk for: med/psych decompensation Time Spent With Patient Time: Total time managing care of this patient today _20___ minutes.
[2024-11-02 20:00] VITALS: BP 151/84; PULSE 84; TEMP 36; O2SAT 97
[2024-11-02] MEDS: Divalproex Sodium ER 500 MG TAB.ER.24H 2000 MG PO (21:26)
[2024-11-02 21:27] VITALS: BP 151/84
[2024-11-02] MEDS: cloNIDine HCL 0.1 MG TABLET PO (21:27)
[2024-11-02] MEDS: Melatonin 3 MG TABLET PO (21:27)
[2024-11-02] MEDS: Lurasidone HCl 20 MG TABLET PO (21:28)
[2024-11-02] MEDS: traZODone HCL 100 MG TABLET PO (21:28)
[2024-11-03 08:55] VITALS: BP 151/72; PULSE 65; RESP 16; TEMP 36.4; O2SAT 95
[2024-11-03] MEDS: Multivitamin TABLET 1 TAB PO (09:07)
[2024-11-03] MEDS: Propranolol HCL 20 MG TABLET 60 MG PO (09:07)
[2024-11-03] MEDS: Famotidine 20 MG TABLET PO ×2 (09:08→20:37)
[2024-11-03] MEDS: Tamsulosin HCL 0.4 MG CAPSULE PO (09:08)
[2024-11-03] MEDS: Atorvastatin Calcium 10 MG TABLET PO (09:08)
[2024-11-03] MEDS: lisinopriL 5 MG TABLET PO (09:08)
[2024-11-03] MEDS: Acetaminophen 325 MG TABLET 650 MG PO ×2 (09:50→20:38)
--- NOTE | 2024-11-03 18:24 | P.PNPSI_ITS ---
Subjective Subjective Date of Service: 11/03/24 Reason For Visit: Bipolar Disorder Interim History: no questions or concerns. hoping for tuesday discharge. per staff, refusing to use walker. pleasant, social. feeling better, sleeping. Mental Status Exam Mental Status Exam Patient Appearance: Appropriate Patient Orientation: Person, Place, Time and Situation Level of Consciousness: Awake Patient Behavior: Cooperative and Good Eye Contact Mood Description: Calm Affect Description: Calm Ability to Follow Directions: Good Speech Pattern: Clear Hallucinations: None Thought Process: Intact Thought Content: positive for Intact Diagnostics Vital Signs (24Hr): Vital Signs - 24 hr 11/02/24 20:00 11/02/24 21:27 11/03/24 08:55 Temperature 96.8 F 97.5 F Pulse Rate 84 65 Respiratory Rate 16 Blood Pressure 151/84 H 151/84 H 151/72 H Pulse Oximetry 97 95 Oxygen Delivery Method Room Air Room Air BMI result Body Mass Index 37.4 Labs 10/25/24 09:50 Medications Medications Current Medications Acetaminophen (Acetaminophen 325 Mg Tablet) 650 mg PO Q6H PRN PRN Reason: Headache/Pain, Scale 1-10 Last Admin: 11/03/24 09:50 Dose: 650 mg Al Hydroxide/Mg Hydroxide (Magnesium Hydrox/Alum Hydrox 30 Ml Oral.Susp) 30 ml PO Q6H PRN PRN Reason: Heartburn/Nausea Atorvastatin Calcium (Atorvastatin Calcium 10 Mg Tablet) 10 mg PO DAILY [facility] Last Admin: 11/03/24 09:08 Dose: 10 mg Clonidine HCl (Clonidine Hcl 0.1 Mg Tablet) 0.1 mg PO BEDTIME [facility]; Protocol Last Admin: 11/02/24 21:27 Dose: 0.1 mg Divalproex Sodium (Divalproex Sodium Er 500 Mg Tab.Er.24h) 2,000 mg PO BEDTIME [facility] Last Admin: 11/02/24 21:26 Dose: 2,000 mg Famotidine (Famotidine 20 Mg Tablet) 20 mg PO BID [facility] Last Admin: 11/03/24 09:08 Dose: 20 mg Hydroxyzine HCl (Hydroxyzine Hcl 25 Mg Tablet) 25 mg PO Q6H PRN PRN Reason: mild anxiety Lisinopril (Lisinopril 5 Mg Tablet) 5 mg PO DAILY [facility]; Protocol Last Admin: 11/03/24 09:08 Dose: 5 mg Lurasidone HCl (Lurasidone Hcl 20 Mg Tablet) 20 mg PO BEDTIME [facility] Last Admin: 11/02/24 21:28 Dose: 20 mg Magnesium Hydroxide (Milk Of Magnesia 30 Ml Oral.Susp) 30 ml PO DAILY PRN PRN Reason: Constipation Melatonin (Melatonin 3 Mg Tablet) 3 mg PO BEDTIME [facility] Last Admin: 11/02/24 21:27 Dose: 3 mg Multivitamins/Vitamin C (Multivitamin Tablet) 1 tab PO DAILY [facility] Last Admin: 11/03/24 09:07 Dose: 1 tab Nicotine Polacrilex (Nicotine Polacrilex 2 Mg Gum) 4 mg BUCCAL Q2H PRN PRN Reason: Nicotine Cravings Ondansetron HCl (Ondansetron Odt 4 Mg Tab.Rapdis) 4 mg TRANSLINGU Q8H PRN PRN Reason: Nausea And Vomiting Propranolol HCl (Propranolol Hcl 20 Mg Tablet) 60 mg PO DAILY [facility]; Protocol Last Admin: 11/03/24 09:07 Dose: 60 mg Senna (Sennosides 8.6 Mg Tablet) 17.2 mg PO BEDTIME PRN PRN Reason: Constipation Tamsulosin HCl (Tamsulosin Hcl 0.4 Mg Capsule) 0.4 mg PO DAILY [facility] Last Admin: 11/03/24 09:08 Dose: 0.4 mg Trazodone HCl (Trazodone Hcl 50 Mg Tablet) 50 mg PO BEDTIME MRX1 PRN PRN Reason: Insomnia Last Admin: 11/01/24 01:20 Dose: 50 mg Trazodone HCl (Trazodone Hcl 100 Mg Tablet) 100 mg PO BEDTIME [facility] Last Admin: 11/02/24 21:28 Dose: 100 mg Allergies Allergies Allergy/AdvReac Type Severity Reaction Status Date / Time No Known Allergies Allergy Verified 10/24/24 20:52 Assessment & Plan Assessment & Plan (1) Bipolar I disorder: Status: Acute Code(s): F31.9 - Bipolar disorder, unspecified Plan Patient is a 58-year-old male with history of bipolar disorder who self-presents for worsening depression and SI in the face and verses father's . Patient reports that he has had bipolar disorder for 30 years and has been and now the hospital many times; however he has been more stable lately and hospitalized once every 8 months. For the past 6 months he has been doing overall well, good enough, living at his prison which he says is not bad. As August approached, the anniversary of his father's , as usual he started to get depressed. Over the next month and a half his depression increased became more severe where he had little interest in things, low energy, poor concentration, increased appetite, increased guilty feelings and then over the past 3 weeks suicidal ideation. Patient reports chronic passive SI that is typically fleeting and easy to dismiss; however over the past week it has become more intense and patient developed a plan to overdose on Tylenol. He alerted his prison staff and said he needed to go to the hospital for safety. Patient takes his medications regularly. Denies any drug or alcohol use. Denies any AVH. Formulation/clinical reasoning: Thirty year history of bipolar disorder. Currently severely depressed. Symptoms seem to be moderately well treated with Abilify and Depakote however patient chronically gets depressed every August. He wants medication management now to help relieve his current depression and prevent future depressive episodes. Discussed options. Patient already seems to have some medication side effects including possible parkinsonian and TD so would like to avoid adding another antipsychotic or increasing Abilify. Considered Wellbutrin however since a triggered his last manic episode, probably not worth the risk. For now will get Depakote level and see if there is room to increase this medication before adding another. Hospital course: 10/26 little better but thinks it because he's here on the unit and unable to hurt himself, which is relieving; also feels therapeutic environment helpful. He still has SI but it's less intense and he can dismiss it, though not back to baseline. Reviewed depakote level which is subtherapeutic and pt agrees to increase dose, switch to Long acting and make it once a day. He's hoping not to add a new med if possible. 10/27 pt says feeling better, but still thinks mostly due to feeling safe on the unit. Says not back to baseline but at a 5/10 (10 being regular self). He asks if he can retry Wellbutrin; hand sign writer discussed risks since made him manic; will wait until increased dose of Depakote reaches steady state to decide 10/28 Patient reports depression seems to be returning and he thinks the brief reprieve was just being in a new environment. Also patient had very poor sleep last night, waking up at 02:00 and has been up since. Discussed options and agreed to wait to see what Depakote level as which is being drawn tomorrow. Discussed behavioral activation; patient did go to group yesterday. Says he will continue to push himself to be interactive discussed TD; he is interested in in[facility]rez[facility] 10/29 Patient says his mood is starting to feel little better today and of note his affect is somewhat brighter. Discussed medication regimen and history. Patient said that he was started on Abilify about a year ago for help with depression; he says his bilateral hand tremor and TD both started after he was initiated on Abilify and was never present prior. Discussed options for medication and as Depakote level is quite low, he agrees to increasing Depakote dose now; will also lower Abilify 10/30 Patient depressed. SI remains with thoughts to OD on tylenol. Pushing self to go to groups. Discussed medication management further, including Depakote, tapering down Abilify and either starting Wellbutrin verse Vraylar verse Latuda Approach to Medication management: -Perhaps increasing Depakote will help with depression; once Depakote is at a safe therapeutic level will then consider Wellbutrin for depression -Since Abilify seems to be the cause of TD/tremor and was started only a year ago for depression, will see if increasing Depakote could make Abilify unnecessary; conversely would consider trying Latuda or Vraylar which can both help with bipolar depression but are lower risk for TD -Patient requires inpatient level of care for medication management given that his suicidalility is present with both depression and anamaria and he remains at risk for both at this time; in addition to safety, medication changes require monitoring patient closely, including monitoring Depakote levels which can not be safely in the outpatient setting 10/31 pt reports mood is a little better, but still depressed; intermittent SI. Discussed options and he wants off Abilify since even at lower dose, TD/tremors are less. Depakote level being drawn tomorrow. -discussed case with dr. Davis who agreed at this point, would avoid wellbutrin given risk of triggering anamaria. Latuda vs Vraylar instead. 11/01 Patient reports that his mood is much better and his affect is noticeably brighter as he yells out a hello to this hand sign writer from down the [place]. He says he is feeling good. No SI at all Although patient's Depakote dose increased and his mood has significantly improved, Depakote level is lower than it was. Not sure why that is but given that patient's is much improved, even though he is now off Abilify, will leave Depakote dose as it is. Despite patient feeling better, he says depression still lingers and he feels it would be gilbert to start him on another medication for bipolar depression which has been the plan and given the discontinuation of Abilify. Discussed options, risks/side effects and patient agrees on Latuda. 11/02: Active on unit. Patient reports feeling pretty good today; denies any depression or anxiety. He reports sleeping well and denies any issues at this time. denies SI/HI/VH/AH. pt was told to reach out to staff if anything changes. Continue current tx plan. 11/03: stable, improved. hoping for DC tuesday. continue current mgmt. Plan: CV Q 15 minutes Start Latuda 20 mg q.h.s. with snack Continue Depakote ER 2000 mg qhs (DC Depakote sprinkles 500 mg b.i.d.); previous Depakote level was subtherapeutic -Depakote level still subtherapeutic; associated lab work WNL DC Abilify cause of tremors/TD; other options available -considering Latuda verse Vraylar Continue other home medications Collateral Reason for continued inpatient stay Substantial Risk for: inability to function Time Spent With Patient Time: Total time managing care of this patient today ____ minutes.
[2024-11-03 20:00] VITALS: BP 148/86; PULSE 81; TEMP 36.4; O2SAT 96
[2024-11-03] MEDS: Divalproex Sodium ER 500 MG TAB.ER.24H 2000 MG PO (20:35)
[2024-11-03 20:36] VITALS: BP 148/86
[2024-11-03] MEDS: cloNIDine HCL 0.1 MG TABLET PO (20:36)
[2024-11-03] MEDS: Melatonin 3 MG TABLET PO (20:37)
[2024-11-03] MEDS: Lurasidone HCl 20 MG TABLET PO (20:37)
[2024-11-03] MEDS: traZODone HCL 100 MG TABLET PO (20:39)
[2024-11-04] MEDS: traZODone HCL 50 MG TABLET PO (02:46)
[2024-11-04 08:23] VITALS: BP 140/99; PULSE 66; RESP 16; TEMP 36.5; O2SAT 98
[2024-11-04] MEDS: Tamsulosin HCL 0.4 MG CAPSULE PO (08:51)
[2024-11-04] MEDS: Acetaminophen 325 MG TABLET 650 MG PO (08:51)
[2024-11-04] MEDS: Multivitamin TABLET 1 TAB PO (08:51)
[2024-11-04 08:52] VITALS: BP 140/99; PULSE 79
[2024-11-04] MEDS: Atorvastatin Calcium 10 MG TABLET PO (08:52)
[2024-11-04] MEDS: Propranolol HCL 20 MG TABLET 60 MG PO (08:52)
[2024-11-04] MEDS: Famotidine 20 MG TABLET PO ×2 (08:52→20:47)
[2024-11-04] MEDS: lisinopriL 5 MG TABLET PO (08:53)
--- NOTE | 2024-11-04 16:07 | P.PNPSI_ITS ---
Subjective Subjective Date of Service: 11/04/24 Reason For Visit: Bipolar Disorder Interim History: i'm fine. per staff, discharging tomorrow. depression improved. no issues. Mental Status Exam Mental Status Exam Patient Appearance: Appropriate Patient Orientation: Person, Place, Time and Situation Level of Consciousness: Awake Patient Behavior: Cooperative and Good Eye Contact Mood Description: Calm Affect Description: Calm Ability to Follow Directions: Good Speech Pattern: Clear Hallucinations: None Thought Process: Intact Thought Content: positive for Intact Diagnostics Vital Signs (24Hr): Vital Signs - 24 hr 11/03/24 20:00 11/03/24 20:36 11/04/24 08:23 Temperature 97.5 F 97.7 F Pulse Rate 81 66 Respiratory Rate 16 Blood Pressure 148/86 H 148/86 H 140/99 H Pulse Oximetry 96 98 Oxygen Delivery Method Room Air Room Air 11/04/24 08:52 Temperature Pulse Rate 79 Respiratory Rate Blood Pressure 140/99 H Pulse Oximetry Oxygen Delivery Method BMI result Body Mass Index 37.4 Labs 10/25/24 09:50 Medications Medications Current Medications Acetaminophen (Acetaminophen 325 Mg Tablet) 650 mg PO Q6H PRN PRN Reason: Headache/Pain, Scale 1-10 Last Admin: 11/04/24 08:51 Dose: 650 mg Al Hydroxide/Mg Hydroxide (Magnesium Hydrox/Alum Hydrox 30 Ml Oral.Susp) 30 ml PO Q6H PRN PRN Reason: Heartburn/Nausea Atorvastatin Calcium (Atorvastatin Calcium 10 Mg Tablet) 10 mg PO DAILY [facility] Last Admin: 11/04/24 08:52 Dose: 10 mg Clonidine HCl (Clonidine Hcl 0.1 Mg Tablet) 0.1 mg PO BEDTIME [facility]; Protocol Last Admin: 11/03/24 20:36 Dose: 0.1 mg Divalproex Sodium (Divalproex Sodium Er 500 Mg Tab.Er.24h) 2,000 mg PO BEDTIME [facility] Last Admin: 11/03/24 20:35 Dose: 2,000 mg Famotidine (Famotidine 20 Mg Tablet) 20 mg PO BID [facility] Last Admin: 11/04/24 08:52 Dose: 20 mg Hydroxyzine HCl (Hydroxyzine Hcl 25 Mg Tablet) 25 mg PO Q6H PRN PRN Reason: mild anxiety Lisinopril (Lisinopril 5 Mg Tablet) 5 mg PO DAILY [facility]; Protocol Last Admin: 11/04/24 08:53 Dose: 5 mg Lurasidone HCl (Lurasidone Hcl 20 Mg Tablet) 20 mg PO BEDTIME [facility] Last Admin: 11/03/24 20:37 Dose: 20 mg Magnesium Hydroxide (Milk Of Magnesia 30 Ml Oral.Susp) 30 ml PO DAILY PRN PRN Reason: Constipation Melatonin (Melatonin 3 Mg Tablet) 3 mg PO BEDTIME [facility] Last Admin: 11/03/24 20:37 Dose: 3 mg Multivitamins/Vitamin C (Multivitamin Tablet) 1 tab PO DAILY [facility] Last Admin: 11/04/24 08:51 Dose: 1 tab Nicotine Polacrilex (Nicotine Polacrilex 2 Mg Gum) 4 mg BUCCAL Q2H PRN PRN Reason: Nicotine Cravings Ondansetron HCl (Ondansetron Odt 4 Mg Tab.Rapdis) 4 mg TRANSLINGU Q8H PRN PRN Reason: Nausea And Vomiting Propranolol HCl (Propranolol Hcl 20 Mg Tablet) 60 mg PO DAILY [facility]; Protocol Last Admin: 11/04/24 08:52 Dose: 60 mg Senna (Sennosides 8.6 Mg Tablet) 17.2 mg PO BEDTIME PRN PRN Reason: Constipation Tamsulosin HCl (Tamsulosin Hcl 0.4 Mg Capsule) 0.4 mg PO DAILY [facility] Last Admin: 11/04/24 08:51 Dose: 0.4 mg Trazodone HCl (Trazodone Hcl 50 Mg Tablet) 50 mg PO BEDTIME MRX1 PRN PRN Reason: Insomnia Last Admin: 11/04/24 02:46 Dose: 50 mg Trazodone HCl (Trazodone Hcl 100 Mg Tablet) 100 mg PO BEDTIME [facility] Last Admin: 11/03/24 20:39 Dose: 100 mg Allergies Allergies Allergy/AdvReac Type Severity Reaction Status Date / Time No Known Allergies Allergy Verified 10/24/24 20:52 Assessment & Plan Assessment & Plan (1) Bipolar I disorder: Status: Acute Code(s): F31.9 - Bipolar disorder, unspecified Plan Patient is a 58-year-old male with history of bipolar disorder who self-presents for worsening depression and SI in the face and verses father's . Patient reports that he has had bipolar disorder for 30 years and has been and now the hospital many times; however he has been more stable lately and hospitalized once every 8 months. For the past 6 months he has been doing overall well, good enough, living at his retirement which he says is not bad. As August approached, the anniversary of his father's , as usual he started to get depressed. Over the next month and a half his depression increased became more severe where he had little interest in things, low energy, poor concentration, increased appetite, increased guilty feelings and then over the past 3 weeks suicidal ideation. Patient reports chronic passive SI that is typically fleeting and easy to dismiss; however over the past week it has become more intense and patient developed a plan to overdose on Tylenol. He alerted his retirement staff and said he needed to go to the hospital for safety. Patient takes his medications regularly. Denies any drug or alcohol use. Denies any AVH. Formulation/clinical reasoning: Thirty year history of bipolar disorder. Currently severely depressed. Symptoms seem to be moderately well treated with Abilify and Depakote however patient chronically gets depressed every August. He wants medication management now to help relieve his current depression and prevent future depressive episodes. Discussed options. Patient already seems to have some medication side effects including possible parkinsonian and TD so would like to avoid adding another antipsychotic or increasing Abilify. Considered Wellbutrin however since a triggered his last manic episode, probably not worth the risk. For now will get Depakote level and see if there is room to increase this medication before adding another. Hospital course: 10/26 little better but thinks it because he's here on the unit and unable to hurt himself, which is relieving; also feels therapeutic environment helpful. He still has SI but it's less intense and he can dismiss it, though not back to baseline. Reviewed depakote level which is subtherapeutic and pt agrees to increase dose, switch to Long acting and make it once a day. He's hoping not to add a new med if possible. 10/27 pt says feeling better, but still thinks mostly due to feeling safe on the unit. Says not back to baseline but at a 5/10 (10 being regular self). He asks if he can retry Wellbutrin; policy writer sales discussed risks since made him manic; will wait until increased dose of Depakote reaches steady state to decide 10/28 Patient reports depression seems to be returning and he thinks the brief reprieve was just being in a new environment. Also patient had very poor sleep last night, waking up at 02:00 and has been up since. Discussed options and agreed to wait to see what Depakote level as which is being drawn tomorrow. Discussed behavioral activation; patient did go to group yesterday. Says he will continue to push himself to be interactive discussed TD; he is interested in inGrezza 10/29 Patient says his mood is starting to feel little better today and of note his affect is somewhat brighter. Discussed medication regimen and history. Patient said that he was started on Abilify about a year ago for help with depression; he says his bilateral hand tremor and TD both started after he was initiated on Abilify and was never present prior. Discussed options for medication and as Depakote level is quite low, he agrees to increasing Depakote dose now; will also lower Abilify 10/30 Patient depressed. SI remains with thoughts to OD on tylenol. Pushing self to go to groups. Discussed medication management further, including Depakote, tapering down Abilify and either starting Wellbutrin verse Vraylar verse Latuda Approach to Medication management: -Perhaps increasing Depakote will help with depression; once Depakote is at a safe therapeutic level will then consider Wellbutrin for depression -Since Abilify seems to be the cause of TD/tremor and was started only a year ago for depression, will see if increasing Depakote could make Abilify unnecessary; conversely would consider trying Latuda or Vraylar which can both help with bipolar depression but are lower risk for TD -Patient requires inpatient level of care for medication management given that his suicidalility is present with both depression and anamaria and he remains at risk for both at this time; in addition to safety, medication changes require monitoring patient closely, including monitoring Depakote levels which can not be safely in the outpatient setting 10/31 pt reports mood is a little better, but still depressed; intermittent SI. Discussed options and he wants off Abilify since even at lower dose, TD/tremors are less. Depakote level being drawn tomorrow. -discussed case with dr. Davis who agreed at this point, would avoid wellbutrin given risk of triggering anamaria. Latuda vs Vraylar instead. 11/01 Patient reports that his mood is much better and his affect is noticeably brighter as he yells out a hello to this policy writer sales from down the egan. He says he is feeling good. No SI at all Although patient's Depakote dose increased and his mood has significantly improved, Depakote level is lower than it was. Not sure why that is but given that patient's is much improved, even though he is now off Abilify, will leave Depakote dose as it is. Despite patient feeling better, he says depression still lingers and he feels it would be gilbert to start him on another medication for bipolar depression which has been the plan and given the discontinuation of Abilify. Discussed options, risks/side effects and patient agrees on Latuda. 11/02: Active on unit. Patient reports feeling pretty good today; denies any depression or anxiety. He reports sleeping well and denies any issues at this time. denies SI/HI/VH/AH. pt was told to reach out to staff if anything changes. Continue current tx plan. 11/03: stable, improved. hoping for DC tuesday. continue current mgmt. 11/04: i'm fine. planning for DC tomorrow. continue current mgmt. Plan: CV Q 15 minutes Start Latuda 20 mg q.h.s. with snack Continue Depakote ER 2000 mg qhs (DC Depakote sprinkles 500 mg b.i.d.); previous Depakote level was subtherapeutic -Depakote level still subtherapeutic; associated lab work WNL DC Abilify cause of tremors/TD; other options available -considering Latuda verse Vraylar Continue other home medications Collateral Reason for continued inpatient stay Substantial Risk for: stable for discharge Time Spent With Patient Time: Total time managing care of this patient today ____ minutes.
[2024-11-04 20:00] VITALS: BP 136/88; PULSE 84; TEMP 36.7; O2SAT 96
[2024-11-04] MEDS: Melatonin 3 MG TABLET PO (20:45)
[2024-11-04 20:46] VITALS: BP 136/88
[2024-11-04] MEDS: cloNIDine HCL 0.1 MG TABLET PO (20:46)
[2024-11-04] MEDS: traZODone HCL 100 MG TABLET PO (20:46)
[2024-11-04] MEDS: Lurasidone HCl 20 MG TABLET PO (20:46)
[2024-11-04] MEDS: Divalproex Sodium ER 500 MG TAB.ER.24H 2000 MG PO (20:47)
[2024-11-05 08:03] VITALS: BP 140/79; PULSE 66; TEMP 36.9; O2SAT 97
[2024-11-05 08:32] VITALS: TEMP 36.4
[2024-11-05] MEDS: Multivitamin TABLET 1 TAB PO (08:49)
[2024-11-05] MEDS: Tamsulosin HCL 0.4 MG CAPSULE PO (08:49)
[2024-11-05] MEDS: Atorvastatin Calcium 10 MG TABLET PO (08:49)
[2024-11-05] MEDS: Famotidine 20 MG TABLET PO (08:49)
[2024-11-05] MEDS: lisinopriL 5 MG TABLET PO (08:50)
[2024-11-05] MEDS: Propranolol HCL 20 MG TABLET 60 MG PO (08:50)
--- NOTE | 2024-11-05 09:08 | PM.PSYDC ---
DS: Providers Provider Date of Service: 11/05/24 Date of admission: 10/24/24 20:11 Date of discharge: 11/05/24 Primary care physician: Unknown Physician Attending physician on admission: Jose Castrejon Consults: 10/24/24 20:43 Consult to Hospitalist Routine Comment: Consulting Provider: [facility] [place] Hospitalists Reason For Exam: OSH admission Attending physician on discharge: Jose Castrejon DS: Diagnosis Discharge Diagnosis (1) Bipolar I disorder: Status: Acute DS: Medications Discharge Medications Home Medications: Home Medications ?Medication ?Instructions ?Recorded ?Confirmed atorvastatin 10 mg tablet (Lipitor) 10 mg PO DAILY 10/24/24 10/24/24 diclofenac sodium 1 % topical gel 1 ea topical BID PRN Pain 10/24/24 10/24/24 (Arthritis Pain (diclofenac)) famotidine 20 mg tablet 20 mg PO BID 10/24/24 10/24/24 lisinopril 5 mg tablet 5 mg PO DAILY 10/24/24 10/24/24 egtotybj-xax-rnyyh acid 0.4 1 tab PO DAILY 10/24/24 10/24/24 mg-lycopene 300 mcg-lutein 250 mcg tablet (CertaVite Senior) ondansetron 4 mg disintegrating 4 mg PO Q8H PRN Nausea And Vomiting 10/24/24 10/24/24 tablet propranolol 60 mg tablet 60 mg PO DAILY 10/24/24 10/24/24 sennosides 8.6 mg tablet (senna) 17.2 mg PO BEDTIME PRN Constipation 10/24/24 10/24/24 tamsulosin 0.4 mg capsule 0.4 mg PO DAILY 10/24/24 10/24/24 Previous Rx's ?Medication ?Instructions ?Recorded clonidine HCl 0.1 mg tablet 0.1 mg PO BEDTIME 30 days #30 tabs 11/02/24 divalproex 500 mg tablet,extended 2,000 mg (4 x 500 mg) PO BEDTIME 11/02/24 release 24 hr 30 days #120 tabs lurasidone 20 mg tablet (Latuda) 20 mg PO BEDTIME 30 days #30 tabs 11/02/24 melatonin 5 mg tablet 5 mg PO BEDTIME PRN sleep 30 days 11/02/24 #30 tabs trazodone 100 mg tablet 100 mg PO BEDTIME 30 days #30 tabs 11/02/24 Mental Status Exam Mental Status Exam Narrative: Pt is alert and oriented; behavior is cooperative, friendly, calm; patient is not in distress; dressed in casual attire, adequate hygiene and grooming; less bilateral hand tremor/pill rolling; less TD symptoms; mood is described as good and affect congruent, noticeably brighter; eye contact appropriate; Speech is normal rate, volume and prosody; no psychomotor retardation; thought process is organized and goal directed; Thought content is on treatment; otherwise pertinent to relevant topics and without any delusional content, paranoid ideations or grandiosity; denies SI; no HI. Denies AVH and there is no evidence of perceptual disturbance. Patients insight and judgment fair Data Data Completed and Pending Completed studies during hospitalization [Text1]: 10/29/24 11/01/24 08:53 15:08 Total Bilirubin 0.3 0.2 Direct Bilirubin 0.1 < 0.2 AST 19 17 ALT 24 22 Alkaline Phosphatase 81 86 Ammonia 38 43 Total Protein 7.6 7.1 Albumin 4.0 3.7 Valproic Acid 55.1 48.7 L DS: Summary Hospital Course Hospital Course: Patient is a 58-year-old male with history of bipolar disorder who self-presents for worsening depression and SI in the face and verses father's . Patient reports that he has had bipolar disorder for 30 years and has been and now the hospital many times; however he has been more stable lately and hospitalized once every 8 months. For the past 6 months he has been doing overall well, good enough, living [facility] which he says is not bad. As August approached, the anniversary of his father's , as usual he started to get depressed. Over the next month and a half his depression increased became more severe where he had little interest in things, low energy, poor concentration, increased appetite, increased guilty feelings and then over the past 3 weeks suicidal ideation. Patient reports chronic passive SI that is typically fleeting and easy to dismiss; however over the past week it has become more intense and patient developed a plan to overdose on Tylenol. He alerted his jail staff and said he needed to go to the hospital for safety. Patient takes his medications regularly. Denies any drug or alcohol use. Denies any AVH. Formulation/clinical reasoning: Thirty year history of bipolar disorder. Currently severely depressed. Symptoms seem to be moderately well treated with Abilify and Depakote however patient chronically gets depressed every August. He wants medication management now to help relieve his current depression and prevent future depressive episodes. Discussed options. Patient already seems to have some medication side effects including possible parkinsonian and TD so would like to avoid adding another antipsychotic or increasing Abilify. Considered Wellbutrin however since a triggered his last manic episode, probably not worth the risk. For now will get Depakote level and see if there is room to increase this medication before adding another. Hospital course: 10/26 little better but thinks it because he's here on the unit and unable to hurt himself, which is relieving; also feels therapeutic environment helpful. He still has SI but it's less intense and he can dismiss it, though not back to baseline. Reviewed depakote level which is subtherapeutic and pt agrees to increase dose, switch to Long acting and make it once a day. He's hoping not to add a new med if possible. 10/27 pt says feeling better, but still thinks mostly due to feeling safe on the unit. Says not back to baseline but at a 5/10 (10 being regular self). He asks if he can retry Wellbutrin; telegraphic typewriter repairer discussed risks since made him manic; will wait until increased dose of Depakote reaches steady state to decide 10/28 Patient reports depression seems to be returning and he thinks the brief reprieve was just being in a new environment. Also patient had very poor sleep last night, waking up at 02:00 and has been up since. Discussed options and agreed to wait to see what Depakote level as which is being drawn tomorrow. Discussed behavioral activation; patient did go to group yesterday. Says he will continue to push himself to be interactive discussed TD; he is interested in inGrezza 10/29 Patient says his mood is starting to feel little better today and of note his affect is somewhat brighter. Discussed medication regimen and history. Patient said that he was started on Abilify about a year ago for help with depression; he says his bilateral hand tremor and TD both started after he was initiated on Abilify and was never present prior. Discussed options for medication and as Depakote level is quite low, he agrees to increasing Depakote dose now; will also lower Abilify 10/30 Patient depressed. SI remains with thoughts to OD on tylenol. Pushing self to go to groups. Discussed medication management further, including Depakote, tapering down Abilify and either starting Wellbutrin verse Vraylar verse Latuda Approach to Medication management: -Perhaps increasing Depakote will help with depression; once Depakote is at a safe therapeutic level will then consider Wellbutrin for depression -Since Abilify seems to be the cause of TD/tremor and was started only a year ago for depression, will see if increasing Depakote could make Abilify unnecessary; conversely would consider trying Latuda or Vraylar which can both help with bipolar depression but are lower risk for TD -Patient requires inpatient level of care for medication management given that his suicidalility is present with both depression and anamaria and he remains at risk for both at this time; in addition to safety, medication changes require monitoring patient closely, including monitoring Depakote levels which can not be safely in the outpatient setting 10/31 pt reports mood is a little better, but still depressed; intermittent SI. Discussed options and he wants off Abilify since even at lower dose, TD/tremors are less. Depakote level being drawn tomorrow. -discussed case with dr. Davis who agreed at this point, would avoid wellbutrin given risk of triggering anamaria. Latuda vs Vraylar instead. 11/01 Patient reports that his mood is much better and his affect is noticeably brighter as he yells out a hello to this telegraphic typewriter repairer from down the [place]gan. He says he is feeling good. No SI at all Although patient's Depakote dose increased and his mood has significantly improved, Depakote level is lower than it was. Not sure why that is but given that patient's is much improved, even though he is now off Abilify, will leave Depakote dose as it is. Despite patient feeling better, he says depression still lingers and he feels it would be gilbert to start him on another medication for bipolar depression which has been the plan and given the discontinuation of Abilify. Discussed options, risks/side effects and patient agrees on Latuda. 11/02: Active on unit. Patient reports feeling pretty good today; denies any depression or anxiety. He reports sleeping well and denies any issues at this time. denies SI/HI/VH/AH. pt was told to reach out to staff if anything changes. Continue current tx plan. With increased Depakote and Latuda started, Patient remained in good mood, depression fully abated, SI fully resolved. He was future oriented and looking forward to returning home. Tremor and TD remain but less prevalent. Patient tolerating medications well, sleeping and eating well, social in the milieu and with a clearly brighter affect. Patient is asking for discharge, feeling back to his regular self and ready to go home. Patient is returning to a structured and supportive environment. He is not in imminent risk for harm to self or others and appropriate to return to the community for care. Request for discharge honored Medications: Increased Depakote Started Latuda Discontinued Abilify (coincided with TD/tremor) Time spent discussing smoking cessation with patient: 3 to 10 minutes Status at Discharge Functional status at discharge: independent ambulation Overall status at discharge: patient is back to baseline Time Spent with Patient Time attestation: Total time managing care of this patient today _40___ minutes. Time spent: Greater than 30 minutes Specific discharge activities: Met with patient; discussed with team; charting Discharge Plan Discharge Anticipated Discharge Date/Time: 11/05/24 11:30 Patient Disposition: Home, Self-Care Discharge Diagnosis: Bipolar I disorder, recurrent, severe most recent episode depressed, in full remission Referrals: Jerardo Malone MD [Physician] - 11/15/24 1:00 pm (In office appointment ) Discharge Medications: New clonidine HCl 0.1 mg Tablet 0.1 mg PO BEDTIME 30 Days Qty: 30 0RF Protocol: Hold for SBP< HOLD for SBP < : 90 divalproex 500 mg Tablet Extended Release 24 Hr 2,000 mg PO BEDTIME 30 Days Qty: 120 0RF lurasidone [Latuda] 20 mg Tablet 20 mg PO BEDTIME 30 Days Qty: 30 0RF Rx Instructions: take with snack (can take at dinner time if so choose) Continued atorvastatin [Lipitor] 10 mg tablet 10 mg PO DAILY propranolol 60 mg tablet 60 mg PO DAILY lisinopril 5 mg tablet 5 mg PO DAILY sennosides [senna] 8.6 mg Tablet 17.2 mg PO BEDTIME PRN (Reason: Constipation) famotidine 20 mg tablet 20 mg PO BID tamsulosin 0.4 mg capsule 0.4 mg PO DAILY ondansetron 4 mg Tablet,Disintegrating 4 mg PO Q8H PRN (Reason: Nausea And Vomiting) diclofenac sodium [Arthritis Pain (diclofenac)] 1 % Gel 1 ea TOPICAL BID PRN (Reason: Pain) Protocol: Apply to: Apply to: right knee CertaVite Senior 0.4 mg-300 mcg- 250 mcg Tablet 1 tab PO DAILY trazodone 100 mg tablet 100 mg PO BEDTIME 30 Days Qty: 30 0RF Changed melatonin 5 mg tablet 5 mg PO BEDTIME PRN (Reason: sleep) 30 Days Qty: 30 0RF Discontinued divalproex [Depakote Sprinkles] 125 mg capsule, delayed rel sprinkle 500 mg PO BID aripiprazole [Abilify] 15 mg tablet 15 mg PO DAILY Milk of Magnesia 800 mg/5 mL Suspension 800 mg PO DAILY PRN (Reason: Constipation) Discharge Orders: Discharge Order (Routine); Ordered 11/05/24 Ordered By: Jose Castrejon Diet: Regular diet Activity on Discharge: intermittently uses walker/cane Stand Alone Forms: Patient Portal Discharge page Print Language: Lithuanian Care Plan Goals: Maintain mood and safe behaviors Take medications as prescribed Practice coping skills Continue with outpatient providers and reach out to them as needed Health Concerns: Mood stability and behaviors Hx of Elevated Cholesterol Plan of Treatment: Follow up with your PCP, psychiatric provider and other outpatient providers regarding above concerns Take medications as prescribed Assessment: Risk assessment at time of discharge:? Patient was interviewed prior to discharge and found to be fully oriented and without any SI or HI. Patient has improved insight and judgment and wants to continue treatment. Patient is not in imminent risk of harm to self or others and has a safety plan that includes presenting to the closest ER or calling 911 if feeling unsafe.? Patient has been observed closely by nursing and unit staff throughout admission; patient has not engaged in any behaviors that suggest dangerousness to self or others and has demonstrated appropriate behaviors and impulse control
== END 2024-11-05 11:03 | disposition home or self-care (01) | DRG 885 ==
PROVIDERS: Psychiatry & Neurology Psychiatry; Admitting Provider Psychiatry & Neurology Psychiatry; Visit Provider Psychiatry & Neurology Psychiatry
DX: F31.9 Bipolar disorder, unspecified (principal); R45.851 Suicidal ideations; I10 Essential (primary) hypertension; E78.00 Pure hypercholesterolemia, unspecified; N40.0 Benign prostatic hyperplasia without lower urinary tract symptoms; K27.9 Peptic ulcer, site unspecified, unspecified as acute or chronic, without hemorrhage or perforation; R25.1 Tremor, unspecified; Z79.899 Other long term (current) drug therapy
CPT/HCPCS: 36415; 80061; 80076; 80164; 82140; 82607; 82746; 83036; 84439; 84443; 85025

== ENCOUNTER → 2024-10-24 20:11 | Outpatient (BNV) | payer MEDICARE, SELFPAY | PROVIDERS: Admitting Provider Psychiatry & Neurology Psychiatry; Visit Provider Family Medicine | DX: I10 Essential (primary) hypertension (principal); E78.00 Pure hypercholesterolemia, unspecified | CPT/HCPCS: 99222 ==

== ENCOUNTER → 2024-10-24 20:11 | Outpatient (BNV) | payer MEDICARE, SELFPAY | PROVIDERS: Admitting Provider Psychiatry & Neurology Psychiatry; Visit Provider Psychiatry & Neurology Psychiatry | DX: F31.9 Bipolar disorder, unspecified (principal) | CPT/HCPCS: 99222; 99232 ==